=== PATIENT | male | born 1955 | race Caucasian/White ===

== ENCOUNTER 2016-09-29 17:18 | Inpatient (IN) | payer MEDICARE, OTHER ==
[2016-09-29 17:05] VITALS: BP 137/92
--- NOTE | 2016-09-29 20:15 | PDOC ---
Exam Derrell Demential Exam: Derrell Note: Please also refer to the separate dictated note~for this date of service dictated separately.~Patient seen individually. Discussed the patient with Nursing staff reviewed the chart.~Reviewed interim history and current functioning. Reviewed vital signs,~Labs/ Radiology~and current medications noted below. Continue current treatment with the changes noted in the dictated addendum note Assessment: Vital Signs: Vital Signs Date Time Temp Pulse Resp B/P (MAP) Pulse Ox O2 Delivery O2 Flow Rate FiO2 09/29/16 17:05 98.3 83 18 137/92 (107) 95 Room Air JUDAH ALEGRIA MD Sep 29, 2016 20:14
[2016-09-29] MEDS ORDERED: MAGNESIUM HYDROXIDE 2,400 MG/30 ML ORAL.SUSP. PO PRN (20:30)
[2016-09-29] MEDS ORDERED: MAG HYDROX/AL HYDROX/SIMETH 30 ML ORAL.SUSP PO PRN (20:30)
[2016-09-29] MEDS ORDERED: METHYL SALICYLATE/MENTHOL TOPICAL OINTMENT 29GM TUBE. TP PRN (20:30)
[2016-09-29] MEDS ORDERED: ACETAMINOPHEN 325 MG TABLET PO PRN (20:30)
[2016-09-29] MEDS ORDERED: METO50TA10 PO (20:42)
[2016-09-29] MEDS ORDERED: LURA40TA PO (20:42)
[2016-09-29] MEDS ORDERED: CHLO15MO2 MM (20:42)
[2016-09-29] MEDS ORDERED: FOLI1TAB16 PO (20:42)
[2016-09-29] MEDS ORDERED: DIVA500T9 PO (20:42)
[2016-09-29] MEDS ORDERED: FURO20TA3 PO (20:42)
[2016-09-29] MEDS ORDERED: LOSA50TA6 PO (20:42)
[2016-09-29] MEDS ORDERED: POTA10TA10 PO (20:42)
[2016-09-29] MEDS ORDERED: APIX5TAB3 PO (20:42)
[2016-09-29] MEDS ORDERED: CLON0.5T3 PO (20:42)
[2016-09-29] MEDS ORDERED: POLY17PO5 PO (20:42)
[2016-09-29] MEDS ORDERED: SENN1TAB7 PO (20:42)
[2016-09-29] MEDS ORDERED: SULF57CR9 TP (23:53)
--- NOTE | 2016-09-30 09:34 | SSS ---
ADMIT DATE: 09/29/2016 This note covers elements not covered in my initial note. DENTIFYING DATA: The patient is a 61-year-old male referred to us from [facility] inpatient service where he presented from [facility] retirement on account of marked increased agitation, aggression, being irritable, having auditory hallucinations, paranoid, threatening staff at the retirement. At [facility] on the inpatient service, he was pushing, yelling, unable to follow directions, agitated, aggressive, psychotic and dangerous. He was seen by Dr. Corbett, for psychiatry consult who recommended for inpatient psychiatric stabilization and then referred to us. The patient was seen individually on evening of 09/29/2016, discussed with nursing staff. Prior to his admission to review his historical information at evening of 09/29/2016. CHIEF COMPLAINT: "Get out." The patient was agitated, labile, trying to jump out of his wheelchair. HISTORY OF PRESENT ILLNESS: The patient has a history of mental retardation/bipolar disorder. Reportedly, he lived with his parents most of his life. His father 4 years ago, mother 1 year ago and since then he has been at the above retirement. Over the past several weeks, he has been increasingly agitated and aggressive and has remained on lithium with a level therapeutic at 0.8. Risperdal was discontinued while at [facility]. He has been increasingly psychotic with marked mood lability, dangerous, out of control behaviors. No active suicidal or homicidal ideation. PAST PSYCHIATRIC HISTORY: As above. MEDICAL HISTORY: Mental retardation, atrial fibrillation, mitral valve repair, CHF, psoriasis, hypertension, hyponatremia. CODE STATUS: DNR. PRIMARY CARE PHYSICIAN: Dr. Lisandro Bird. DIET: Regular. CURRENT PSYCHOTROPICS: MRAD was reviewed. He is on lithium, Latuda, Klonopin, and Risperdal recently discontinued. FAMILY HISTORY: Noncontributory. SOCIAL HISTORY: No alcohol, drug abuse, physical, sexual or elder abuse history is noted. He is not known to be a perpetrator. MENTAL STATUS EXAMINATION: The patient was seen individually evening of 09/29/2016. He is extremely labile, loud, aggressive, psychotic and physically threatening as I attempted to visit with him. Speech is loud, yelling. Insight, judgment, recent and remote memory, attention, concentration, fund of knowledge, poor, consistent with his diagnosis. LABORATORY DATA: Reviewed. PLAN: The patient was admitted to the geropsychiatry unit at [facility] with a plan for me to see him daily individually, medical followup with Dr. Stacy/Dr. Winn. Will be continued on his admitting psychotropics. Shortly after being on a unit, he fell, hit his head. Dr. Winn recommended he be taken to the Emergency Room for possible CT head and sutures. He was therefore discharged from the unit. Once he is medically stable, if behaviors persist, we will consider readmitting him for stabilization. FINAL DIAGNOSIS: As noted above. MAN Ty ALEGRIA MD DR: JESÚS/liliane JOB#: [id number] / [id number]
== END 2016-09-29 20:27 | disposition short-term general hospital (02) | DRG 885 ==
LOC: GEROPSY 17:20
PROVIDERS: ADMIT Psychiatry & Neurology Psychiatry; ATTEND Psychiatry & Neurology Psychiatry
DX: F23 Brief psychotic disorder (principal); I11.0 Hypertensive heart disease with heart failure; I50.9 Heart failure, unspecified; F31.9 Bipolar disorder, unspecified; I48.91 Unspecified atrial fibrillation; Z66 Do not resuscitate; L40.9 Psoriasis, unspecified; F79 Unspecified intellectual disabilities; Z95.2 Presence of prosthetic heart valve

== ENCOUNTER 2016-09-29 20:47 | Inpatient (IN) | payer MEDICARE, OTHER ==
[~2016-09-29] VITALS: Ht 180.3 cm; Wt 84.5 kg
[~2016-09-29 20:47] MED LIST: APIX5TAB3 PO; CHLO15MO2 MM; CLON0.5T3 PO; DIVA500T9 PO; FOLI1TAB16 PO; FURO20TA3 PO; LOSA50TA6 PO; LURA40TA PO; METO50TA10 PO; POLY17PO5 PO; POTA10TA10 PO; SENN1TAB7 PO
--- NOTE | 2016-09-29 21:50 | RAD ---
CT scan of the head without contrast 09/29/2016 Clinical History: Fall with laceration back of head. Technique: Unenhanced, contiguous, 5 mm axial sections were obtained through the head. One or more of the following individualized dose reduction techniques were utilized for this study: 1. Automated exposure control. 2. Adjustment of the mA and/or kV according to patient size. 3. Use of iterative reconstruction technique. Findings: No previous imaging studies are available for comparison. There is generalized parenchymal atrophy. Areas of decreased attenuation are seen within the periventricular and subcortical white matter of both cerebral hemispheres consistent with areas of small vessel ischemic disease. No acute parenchymal abnormality is seen. No extra-axial fluid collection is noted. No skull fracture is seen. Impression: No acute intracranial abnormality is seen. CT scan of the cervical spine without contrast 09/29/2016 Clinical history: Neck pain post fall. Technique: Unenhanced, contiguous, 0.625 mm axial sections were obtained through the cervical spine. Axial, coronal and sagittal reconstructed images were obtained. One or more of the following individualized dose reduction techniques were utilized for this study: 1. Automated exposure control. 2. Adjustment of the mA and/or kV according to patient size. 3. Use of iterative reconstruction technique. Findings: Sagittal and coronal reconstructed images demonstrate straightening of the normal cervical lordosis. Degenerative changes consisting of disc space narrowing, vertebral endplate sclerosis and mild anterior and posterior vertebral body osteophyte formation are seen throughout the cervical disc spaces. No fracture or subluxation of the cervical vertebrae is seen. Degenerative changes are seen involving the uncovertebral and facet joints throughout the cervical disc spaces. Impression: No fracture or subluxation of the cervical vertebra is identified. Electronically signed by: Scott De La Paz MD (09/29/2016 9:47 PM) [facility]
--- NOTE | 2016-09-29 22:12 | PHYS DOC ---
Past History Past Medical History: Other Past Surgical History: Other Adult General Chief Complaint Chief Complaint: MECHANICAL FALL HPI HPI Patient is a 61-year-old resident at the [facility] who presents here today secondary to a fall. Patient stood from his wheelchair and fell backwards and hit his head on a workstation on wheels. Patient had some bleeding to the back of his head with a patient was sent down for further evaluation and possible CT scan of his head and C-spine. Patient no loss of consciousness. Patient of any pains anywhere else. Review of systems difficult to obtain secondary to the patient's dementia. Patient complains of pain to his head and area where the laceration is. Review of systems: Eyes: Denies change in visual acuity, Denies any any arm pain or leg pain. Eyes any abdominal pain. All other review systems are negative except as documented in the history of present illness portion. Physical exam: Patient was soft tissue swelling and contused bleeding tissue in his posterior occiput. Patient appears to be macerated and there does not appear to be a discrete suture line that needs to be stitched at this time. There is significant amount of contusion of the tissue that is bleeding at this time. The bleeding has been well controlled with pressure dressing. Constitutional: Well developed, well nourished, no acute distress, non-toxic appearance. HENT: Normocephalic,bilateral external ears normal, , nose normal. Eyes: PERRLA, EOMI, conjunctiva normal, no discharge. Neck: Normal range of motion, mild tenderness to palpation to his left lateral neck. Cardiovascular:Heart rate regular Lungs & Thorax: Bilateral breath sounds clear to auscultation Abdomen: Bowel sounds normal, soft, no tenderness, no masses, no pulsatile masses. Skin: Warm, dry, no erythema, no rash. Back: No tenderness, no CVA tenderness. Extremities: No tenderness, no cyanosis, no clubbing, ROM intact, no edema. Patient's pelvis and shoulders were both range of motion without any grimacing or discomfort noted by the patient. Neurologic: Alert and awake. Psychologic: Affect baseline for patient Assessment and plan This is 61-year-old gentleman who presented to the ER today secondary to head trauma. Patient fell backwards and hit his head up against a work station wheels. Patient had no LOC. Patient's CT scan of his head and C-spine are benign unremarkable. Patient does have contused bleeding tissue in the back of his occiput without any clear area for suturing. I believe patient would best be treated with a pressure dressing and allow to heal by secondary intent. Patient's tetanus is up-to-date. Patient will be be discharged back to [facility]. Review of Systems Review of Systems Constitutional: Denies fever or chills [] Eyes: Denies change in visual acuity, redness, or eye pain [] HENT: Denies nasal congestion or sore throat [] Respiratory: Denies cough or shortness of breath [] Cardiovascular: No additional information not addressed in HPI [] GI: Denies abdominal pain, nausea, vomiting, bloody stools or diarrhea [] : Denies dysuria or hematuria [] Musculoskeletal: Denies back pain or joint pain [] Integument: Denies rash or skin lesions [] Neurologic: Denies headache, focal weakness or sensory changes [] Endocrine: Denies polyuria or polydipsia [] Physical Exam Physical Exam Constitutional: Well developed, well nourished, no acute distress, non-toxic appearance. [] HENT: Normocephalic, atraumatic, bilateral external ears normal, oropharynx moist, no oral exudates, nose normal. [] Eyes: PERRLA, EOMI, conjunctiva normal, no discharge. [] Neck: Normal range of motion, no tenderness, supple, no stridor. [] Cardiovascular:Heart rate regular rhythm, no murmur [] Lungs & Thorax: Bilateral breath sounds clear to auscultation [] Abdomen: Bowel sounds normal, soft, no tenderness, no masses, no pulsatile masses. [] Skin: Warm, dry, no erythema, no rash. [] Back: No tenderness, no CVA tenderness. [] Extremities: No tenderness, no cyanosis, no clubbing, ROM intact, no edema. [] Neurologic: Alert and oriented X 3, normal motor function, normal sensory function, no focal deficits noted. [] Psychologic: Affect normal, judgement normal, mood normal. [] Current Patient Data Vital Signs Vital Signs Date Time Temp Pulse Resp B/P (MAP) Pulse Ox O2 Delivery O2 Flow Rate FiO2 09/29/16 20:47 98.8 75 18 99 Room Air EKG EKG [] Radiology/Procedures Radiology/Procedures [] Course & Med Decision Making Course & Med Decision Making Pertinent Labs and Imaging studies reviewed. (See chart for details) [] Dragon Disclaimer Dragon Disclaimer This chart was dictated in whole or in part using Voice Recognition software in a busy, high-work load, and often noisy Emergency Department environment. It may contain unintended and wholly unrecognized errors or omissions. Departure Departure: Impression: Primary Impression: Head trauma Additional Impression: Scalp laceration Disposition: ADMITTED INPATIENT Condition: IMPROVED Referrals: HELLEN HERNANDEZ (PCP) Patient Instructions: Head Injury, Adult, Laceration Care, Adult Additional Instructions: Your laceration is not amenable to suturing. We are going to allow your laceration to heal by secondary intent. Please keep the wound clean and dry and covered for the next 7 days. Problem Qualifiers CURT TSE MD Sep 29, 2016 22:12
[2016-09-29] MEDS ORDERED: MAG HYDROX/AL HYDROX/SIMETH 30 ML ORAL.SUSP PO PRN (23:45)
[2016-09-29] MEDS ORDERED: ACETAMINOPHEN 325 MG TABLET PO PRN (23:45)
[2016-09-29] MEDS ORDERED: METHYL SALICYLATE/MENTHOL TOPICAL OINTMENT 29GM TUBE. TP PRN (23:45)
[2016-09-29] MEDS ORDERED: MAGNESIUM HYDROXIDE 2,400 MG/30 ML ORAL.SUSP. PO PRN (23:45)
[2016-09-29] MEDS ORDERED: SULF57CR9 TP (23:53)
[2016-09-30] MEDS ORDERED: POLYETHYLENE GLYCOL 3350 17 GM PACKET. PO PRN
[2016-09-30] MEDS ORDERED: SULFACETAMIDE SODIUM TP PRN
[2016-09-30] MEDS ORDERED: SULFUR TP PRN
[2016-09-30 02:13] VITALS: BP 121/63
[2016-09-30 02:17] VITALS: BP 111/70
[2016-09-30 05:24] VITALS: BP 100/58
[2016-09-30 08:18] LABS: VAL ACID 58 mcg/mL (50-100)
[2016-09-30 08:30] VITALS: BP 124/85
[2016-09-30] MEDS: APIXABAN 5 MG TABLET. PO SCH ×2 (09:00→20:16)
[2016-09-30] MEDS ORDERED: LURASIDONE 40 MG TABLET. PO SCH (09:00)
[2016-09-30] MEDS: clonazePAM 0.5 MG TABLET PO SCH ×2 (10:11→20:13)
[2016-09-30] MEDS: LOSARTAN 50 MG TABLET. PO SCH (10:11)
[2016-09-30] MEDS: POTASSIUM CHLORIDE 10 MEQ TABLET.ER. PO SCH (10:12)
[2016-09-30] MEDS: DIVALPROEX SODIUM 250 MG TABLET.DR. PO SCH ×2 (10:12→20:14)
[2016-09-30] MEDS: METOPROLOL SUCC 24HR ER 50 MG TAB.ER.24H. PO SCH ×2 (10:12→20:14)
[2016-09-30] MEDS: CHLORHEXIDINE 0.12% 15 ML MOUTHWASH. MM SCH (10:13)
[2016-09-30 10:43] VITALS: BP 127/79
[2016-09-30 16:19] VITALS: BP 117/70
--- NOTE | 2016-09-30 16:20 | HP ---
ADMIT DATE: 09/30/2016 PSYCHIATRIC ADMISSION HISTORY/EVALUATION DATE OF READMISSION: 09/29/2016 PRIMARY CARE PHYSICIAN: Dr. Lisandro Bird M.D. IDENTIFYING DATA: The patient is a 61-year-old white male who was initially referred to us earlier in the day on 09/29/2016 from [facility] where he presented from the [facility] on account of altered mental status, aggressive behavior, auditory hallucinations, being paranoid, threatening to staff, irritable. He was stabilized medically, seen for consult at [facility] by Dr. Corbett recommended for inpatient psychiatric hospitalization. He was admitted with us earlier on 09/29/2016; was extremely agitated, loud, disruptive. Had a fall on the unit, sustaining a scalp laceration, was transferred to the Emergency Room and discharged from my unit. He was medically stabilized in the ER, returned back to the unit around midnight of 09/29/2016. CHIEF COMPLAINT: "No." HISTORY OF PRESENT ILLNESS: Details will not be repeated here, readers referred to my initial assessment at the time of the initial admission for details. Briefly, the patient has a long history of bipolar disorder and mental retardation. He had been living at home with his parents. His father 4 years ago, mother 1 year ago and then he was transferred to the [facility] where he has lived for about a year. More recently at the [facility] he is being extremely loud, aggressive, disruptive, psychotic. Risperdal was discontinued. Bozeman level was therapeutic at 0.8. Behaviors worsened over the past several days, prompting the transfer to [facility] and then to , thereafter to the ER as noted and back to us. PAST PSYCHIATRIC HISTORY: As above. PAST MEDICAL HISTORY: Atrial fibrillation status post head injury, scalp laceration, mitral valve repair, CHF, psoriasis, hypertension, history of hyponatremia. DIET: Regular. CURRENT PSYCHOTROPICS: Bozeman, Latuda, Klonopin. Risperdal was recently discontinued. FAMILY HISTORY: Noncontributory. SOCIAL HISTORY: No alcohol, drug abuse, physical, sexual or elder abuse history noted. Not known to be a perpetrator. MENTAL STATUS EXAMINATION: The patient is oriented to himself. Overall, functioning consistent with his moderate MR. He remains quite labile, anxious, restless. Insight, judgment, recent and remote memory, attention, concentration, fund of knowledge poor, consistent with his diagnosis. LABORATORY DATA: Reviewed. IMPRESSION: Bipolar 1 disorder, mixed with psychotic features; anxiety disorder, unspecified; moderate mental retardation; impulse control disorder, unspecified; status post head injury, scalp laceration. Rest diagnosis is unchanged from above. PLAN: The patient has been readmitted to inpatient psychiatry service. Continue current psychotropics. Check labs, valproic acid level, and lithium level. Observe the patient's baseline, then adjust psychotropics as clinically indicated. I will see the patient daily individually from a psychiatric standpoint. Medical followup will be requested with Dr. Stacy/Dr. Winn. MAN Ty ALEGRIA MD DR: JESÚS/liliane JOB#: [id number] / [id number]
--- NOTE | 2016-09-30 19:49 | PDOC ---
Exam Derrell Demential Exam: Derrell Note: Please also refer to the separate dictated note~for this date of service dictated separately.~Patient seen individually. Discussed the patient with Nursing staff reviewed the chart.~Reviewed interim history and current functioning. Reviewed vital signs,~Labs/ Radiology~and current medications noted below. Continue current treatment with the changes noted in the dictated addendum note Assessment: Vital Signs: Vital Signs Date Time Temp Pulse Resp B/P (MAP) Pulse Ox O2 Delivery O2 Flow Rate FiO2 09/30/16 16:19 99.0 80 16 117/70 (86) 98 09/30/16 05:24 Room Air I&O Intake and Output 09/30/16 07:00 Intake Total 180 ml Balance 180 ml Intake Oral 180 ml Labs: Laboratory Tests Test 09/30/16 07:33 Iron Level 62 ug/dL (65-175) L Total Iron Binding Capacity 331 ug/dL (250-450) Iron Saturation 19 % (15-34) Vitamin B12 Level 402 pg/mL (247-911) Valproic Acid Level 58 mcg/mL (50-100) Valproic Acid Last Dose Date 09/28/2016 Valproic Acid Last Dose Time 2100 Current Medications: Meds: Current Medications Acetaminophen (Tylenol) 650 mg PRN Q6HRS PRN PO PAIN / TEMP; Start 09/29/16 at 23:45 Multi-Ingredient Ointment (Analgesic Terril) 1 charles PRN QID PRN TP MUSCLE PAIN; Start 09/29/16 at 23:45 Al Hydroxide/Mg Hydroxide (Mylanta Plus Xs) 15 ml PRN AFTMEALHC PRN PO DYSPEPSIA; Start 09/29/16 at 23:45 Magnesium Hydroxide (Milk Of Magnesia) 2,400 mg PRN QHS PRN PO CONSTIPATION; Start 09/29/16 at 23:45 Apixaban (Eliquis) 5 mg BID PO ; Start 09/30/16 at 09:00 Clonazepam (KlonoPIN) 0.5 mg BID PO Last administered on 09/30/16 10:11; Start 09/30/16 at 09:00 Divalproex Sodium (Depakote) 500 mg BID PO Last administered on 09/30/16 10:12 ; Start 09/30/16 at 09:00 Chlorhexidine Gluconate (Peridex) 15 ml DAILY MM Last administered on 10:13; Start 09/30/16 at 09:00 Folic Acid (Folic Acid) 1 mg HS PO ; Start 09/30/16 at 21:00 Furosemide (Lasix) 20 mg HS PO ; Start 09/30/16 at 21:00 Losartan Potassium (Cozaar) 50 mg DAILY PO Last administered on 09/30/16 10:11 ; Start 09/30/16 at 09:00 Metoprolol Succinate (Toprol Xl) 50 mg BID PO Last administered on 09/30/16 10 :12; Start 09/30/16 at 09:00 Polyethylene Glycol (miraLAX) 17 gm PRN DAILY PRN PO CONSTIPATION; Start at 00:00 Senna/Docusate Sodium (Senna Plus) 1 tab HS PO ; Start 09/30/16 at 21:00 Potassium Chloride (Klor-Con) 10 meq DAILY PO Last administered on 09/30/16 10 :12; Start 09/30/16 at 09:00 Non-Formulary Medication 1 charles PRN DAILY PRN TP RASH; Start 09/30/16 at 00:00; Status UNV Active Scripts Active Reported Sulfacetamide-Sulfur 10-5% Crm (Sulfacetamide Sodium/Sulfur) 57 Gm Cream..g. 1 Charles TP PRN DAILY PRN Potassium Chloride 10 Meq Tablet.er 10 Meq PO DAILY Miralax (Polyethylene Glycol 3350) 17 Gm Powd.pack 17 Gm PO PRN DAILY PRN Metoprolol Succinate ( Xl ) (Metoprolol Succinate) 50 Mg Tab.er.24h 50 Mg PO BID Losartan Potassium 50 Mg Tablet 50 Mg PO DAILY Furosemide 20 Mg Tablet 20 Mg PO HS Folic Acid 1 Mg Tablet 1 Mg PO HS Senna-Docusate Sodium Tablet (Sennosides/Docusate Sodium) 1 Each Tablet 1 Each PO HS Peridex (Chlorhexidine Gluconate) 15 Ml Mouthwash 15 Ml MM DAILY Eliquis (Apixaban) 5 Mg Tablet 5 Mg PO BID Latuda (Lurasidone Hcl) 40 Mg Tablet 60 Mg PO DAILY Divalproex Sodium 500 Mg Tablet.dr 1 Tab PO BID Clonazepam 0.5 Mg Tablet 0.5 Mg PO BID Diagnosis: Problems: (1) Bipolar affective, mixed, sev w/ psych (2) Anxiety disorder (3) Dementia, vascular, with delusions (4) Dementia in Alzheimer's disease with delusions (5) Impulse control disorder JUDAH ALEGRIA MD Sep 30, 2016 19:49
[2016-09-30] MEDS: SENNOSIDES/DOCUSATE 8.6/50MG TABLET. PO SCH (20:15)
[2016-09-30] MEDS: FUROSEMIDE 20 MG TABLET PO SCH (20:15)
[2016-09-30] MEDS: FOLIC ACID 1 MG TABLET PO SCH (20:15)
[2016-10-01 06:22] VITALS: BP 121/78
[2016-10-01 07:56] LABS: BASO % 0 % (0-3); EOS # 0.2 x10^3/uL (0.0-0.7); EOS % 3 % (0-3); HEMATOCRIT 33.4 % (39.0-53.0); HEMOGLOBIN 10.9 g/dL (13.0-17.5); LYMPH # 0.8 x10^3/uL (1.0-4.8); LYMPH % 13 % (24-48); MEAN CORPUSCULAR HEMOGLOBIN 30 pg (25-35); MEAN CORPUSCULAR HGB CONC 33 g/dL (31-37); MEAN CORPUSCULAR VOLUME 91 fL (79-100); MONO # 0.5 x10^3/uL (0.0-1.1); MONO % 8 % (0-9); NEUT # 4.5 x10^3uL (1.8-7.7); NEUT % 75 % (31-73); PLATELET COUNT 158 x10^3/uL (140-400); RED BLOOD COUNT 3.65 x10^6/uL (4.30-5.70); RED CELL DISTRIBUTION WIDTH 15.4 % (11.5-14.5)
[2016-10-01 08:09] LABS: ALBUMIN 3.3 g/dL (3.4-5.0); GFR 75.7; POTASSIUM 4.1 mmol/L (3.5-5.1); TOTAL BILIRUBIN 0.4 mg/dL (0.2-1.0); TOTAL PROTEIN 6.7 g/dL (6.4-8.2)
[2016-10-01] MEDS: CHLORHEXIDINE 0.12% 15 ML MOUTHWASH. MM SCH (08:10)
[2016-10-01] MEDS: METOPROLOL SUCC 24HR ER 50 MG TAB.ER.24H. PO SCH ×2 (08:10→20:15)
[2016-10-01] MEDS: LOSARTAN 50 MG TABLET. PO SCH (08:11)
[2016-10-01] MEDS: APIXABAN 5 MG TABLET. PO SCH ×2 (08:11→20:15)
[2016-10-01] MEDS: POTASSIUM CHLORIDE 10 MEQ TABLET.ER. PO SCH (08:11)
[2016-10-01] MEDS: DIVALPROEX SODIUM 250 MG TABLET.DR. PO SCH ×2 (08:12→20:14)
[2016-10-01] MEDS: LURASIDONE 40 MG TABLET. PO SCH (08:14)
[2016-10-01] MEDS: clonazePAM 0.5 MG TABLET PO SCH ×2 (08:14→20:15)
--- NOTE | 2016-10-01 14:23 | CONS ---
DATE OF CONSULTATION: 09/30/2016 CONSULT FOR MEDICAL MANAGEMENT. HISTORY OF PRESENT ILLNESS: The patient is a 61-year-old male patient with a long history of psychiatric illness, bipolar disorder and also mental retardation, was seen in the Emergency Room of [facility] because apparently he went into psychotic state, threatening all the staff at the boarding home where he has been staying and apparently have tried to take him to [place] but they would not accept him on this as a referral. He was seen in the Emergency Room of [facility] where he was evaluated as he has been exhibiting aggressive, irritable behavior, somewhat still having auditory hallucinations, responding to the internal stimuli, also paranoid and also refusing all the family members who have been with him, not wanting to be touched by them. The patient apparently had some problems with his heart lately and he was sent to [facility] where he stayed for 2 weeks. At that time, they took him off his Risperdal and also his fluvoxamine. He continues to be on lithium carbonate. Higgins level was 0.8 on admission and by the time, he was seen in the Emergency Room, he was continued to be confused with involuntarily movement of his extremities, restless, continued to responding to internal stimuli, apparently is hallucinating at this time and from there he was [facility]. On questioning him, he denied any complaint. PAST MEDICAL HISTORY: Significant for atrial fibrillation, hyponatremia, history of metabolic encephalopathy. PAST PSYCHIATRIC HISTORY: Significant for bipolar disorder, obsessive compulsive disorder, impulse control disorder, has also moderate mental retardation. PAST MEDICAL HISTORY: Significant for mitral valve repair, congestive heart failure with an ejection fraction of 45%, psoriasis. ALLERGIES: He has no known drug allergies. MEDICATIONS: He is currently on following medications: He is currently on apixaban 5 mg p.o. b.i.d., chlorhexidine gluconate 15 mL swish and spit twice a day, clonazepam 0.5 mg twice a day, divalproex 500 mg twice a day, folic acid 1 mg at bedtime, furosemide 20 mg at bedtime, losartan potassium 50 mg once a day, Latuda 60 mg once a day, metoprolol succinate 50 mg once a day, polyethylene glycol 17 grams once a day, potassium chloride 10 mEq once a day, Senna-S 1 tablet once a day, sulfacetamide and sulfur cream applied topically as needed. REVIEW OF SYSTEMS: As per history of present illness. PHYSICAL EXAMINATION GENERAL: When I examined him, he was lying flat in the floor, sleeping comfortably, in no apparent distress. He was pale, but no jaundice, cyanosis or thyromegaly. No jugular venous distention. No lower limb edema. VITAL SIGNS: His heart rate was 80, blood pressure was 117/70, temperature was 99, respiratory rate was 16, and oxygen saturation was 98% on room air. HEAD, EYES, EARS, NOSE and THROAT: Showed normocephalic, atraumatic. NECK: Supple. HEART: Showed normal first and second heart sounds with no gallop, rub or murmur. CHEST: Clear to auscultation. No crepitation or rhonchi. ABDOMEN: Slightly distended, soft, nontender. NEUROLOGIC: He was awake, alert, respond at times appropriately. All his cranial nerves are intact. EXTREMITIES: He moves extremities without difficulty. SKIN: Showed that he has marked seborrheic dermatitis affecting the scalp and the face. He has also wounds on his both legs, although he carries a diagnosis of psoriasis, I could not see any evidence of psoriasis on his elbows, knees or margins. LAB WORK: Showed a white cell count of 5100, hemoglobin 8.4, hematocrit 30, MCV 96, and platelet count of 142,000. His serum sodium 142, potassium 4.1, chloride 108, bicarbonate 29, BUN 14, creatinine 1.1. His glucose was 93. Calcium was 9.2, magnesium 2.2. His AST, ALT, alkaline phosphatase were normal. Albumin was 4. His prothrombin time was 18.3, aPTT was 38, and INR 1.5. His CT scan of the head was unremarkable. ASSESSMENT AND PLAN: So in summary, this is a 61-year-old male patient with longstanding history of psychiatric illness in the form of bipolar disorder as well as mental retardation, who was [facility] with altered mental status, being aggressive, irritable. He has also auditory hallucination, has been threatening the staff and questioning, yelling, difficult to redirect and he is here for psychiatric stabilization. Medically he is known to have hypertension and hyponatremia, congestive heart failure, mitral valve repair, atrial fibrillation and psoriasis versus seborrheic dermatitis. Medically all in all, he seemed to be stable and all his vital signs are stable. His lab works are all within acceptable range. I will repeat his labs tomorrow to make sure that his sodium is within acceptable range. I will follow all his other lab work that are still pending at the time of this dictation. Thank you, Dr. Andrade for allowing me to participate in the care of this patient. JOSR CARDENAS MD DR: RUDY/liliane JOB#: [id number] / [id number]
[2016-10-01 16:27] VITALS: BP 116/66
--- NOTE | 2016-10-01 19:46 | PDOC ---
Exam Derrell Demential Exam: Derrell Note: Please also refer to the separate dictated note~for this date of service dictated separately.~Patient seen individually. Discussed the patient with Nursing staff reviewed the chart.~Reviewed interim history and current functioning. Reviewed vital signs,~Labs/ Radiology~and current medications noted below. Continue current treatment with the changes noted in the dictated addendum note Assessment: Vital Signs: Vital Signs Date Time Temp Pulse Resp B/P (MAP) Pulse Ox O2 Delivery O2 Flow Rate FiO2 10/01/16 16:27 97.9 76 20 116/66 (83) 96 09/30/16 05:24 Room Air I&O Intake and Output 10/01/16 07:00 Intake Total 1320 ml Balance 1320 ml Intake Oral 1320 ml Labs: Laboratory Tests Test 10/01/16 07:39 White Blood Count 6.0 x10^3/uL (4.0-11.0) Red Blood Count 3.65 x10^6/uL (4.30-5.70) L Hemoglobin 10.9 g/dL (13.0-17.5) L Hematocrit 33.4 % (39.0-53.0) L Mean Corpuscular Volume 91 fL (79-100) Mean Corpuscular Hemoglobin 30 pg (25-35) Mean Corpuscular Hemoglobin Concent 33 g/dL (31-37) Red Cell Distribution Width 15.4 % (11.5-14.5) H Platelet Count 158 x10^3/uL (140-400) Neutrophils (%) (Auto) 75 % (31-73) H Lymphocytes (%) (Auto) 13 % (24-48) L Monocytes (%) (Auto) 8 % (0-9) Eosinophils (%) (Auto) 3 % (0-3) Basophils (%) (Auto) 0 % (0-3) Neutrophils # (Auto) 4.5 x10^3uL (1.8-7.7) Lymphocytes # (Auto) 0.8 x10^3/uL (1.0-4.8) L Monocytes # (Auto) 0.5 x10^3/uL (0.0-1.1) Eosinophils # (Auto) 0.2 x10^3/uL (0.0-0.7) Basophils # (Auto) 0.0 x10^3/uL (0.0-0.2) Prothrombin Time 11.3 SEC (9.4-11.4) Prothrombin Time INR 1.1 (0.9-1.1) Sodium Level 146 mmol/L (136-145) H Potassium Level 4.1 mmol/L (3.5-5.1) Chloride Level 108 mmol/L (98-107) H Carbon Dioxide Level 33 mmol/L (21-32) H Anion Gap 5 (6-14) L Blood Urea Nitrogen 12 mg/dL (8-26) Creatinine 1.0 mg/dL (0.7-1.3) Estimated GFR (Cockcroft-Gault) 75.7 BUN/Creatinine Ratio 12 (6-20) Glucose Level 98 mg/dL (70-99) Calcium Level 9.0 mg/dL (8.5-10.1) Total Bilirubin 0.4 mg/dL (0.2-1.0) Aspartate Amino Transferase (AST) 21 U/L (15-37) Alanine Aminotransferase (ALT) 18 U/L (16-63) Alkaline Phosphatase 61 U/L (46-116) Total Protein 6.7 g/dL (6.4-8.2) Albumin 3.3 g/dL (3.4-5.0) L Albumin/Globulin Ratio 1.0 (1.0-1.7) Current Medications: Meds: Current Medications Acetaminophen (Tylenol) 650 mg PRN Q6HRS PRN PO PAIN / TEMP; Start 09/29/16 at 23:45 Multi-Ingredient Ointment (Analgesic [place]) 1 charlse PRN QID PRN TP MUSCLE PAIN; Start 09/29/16 at 23:45 Al Hydroxide/Mg Hydroxide (Mylanta Plus Xs) 15 ml PRN AFTMEALHC PRN PO DYSPEPSIA; Start 09/29/16 at 23:45 Magnesium Hydroxide (Milk Of Magnesia) 2,400 mg PRN QHS PRN PO CONSTIPATION; Start 09/29/16 at 23:45 Apixaban (Eliquis) 5 mg BID PO Last administered on 10/01/16 08:11; Start at 09:00 Clonazepam (KlonoPIN) 0.5 mg BID PO Last administered on 10/01/16 08:14; Start 09/30/16 at 09:00 Divalproex Sodium (Depakote) 500 mg BID PO Last administered on 10/01/16 08:12 ; Start 09/30/16 at 09:00 Chlorhexidine Gluconate (Peridex) 15 ml DAILY MM Last administered on 08:10; Start 09/30/16 at 09:00 Folic Acid (Folic Acid) 1 mg HS PO Last administered on 09/30/16 20:15; Start 09/30/16 at 21:00 Furosemide (Lasix) 20 mg HS PO Last administered on 09/30/16 20:15; Start at 21:00 Losartan Potassium (Cozaar) 50 mg DAILY PO Last administered on 10/01/16 08:11 ; Start 09/30/16 at 09:00 Metoprolol Succinate (Toprol Xl) 50 mg BID PO Last administered on 10/01/16 08 :10; Start 09/30/16 at 09:00 Polyethylene Glycol (miraLAX) 17 gm PRN DAILY PRN PO CONSTIPATION; Start at 00:00 Senna/Docusate Sodium (Senna Plus) 1 tab HS PO Last administered on 09/30/16 20:15; Start 09/30/16 at 21:00 Potassium Chloride (Klor-Con) 10 meq DAILY PO Last administered on 10/01/16 08 :11; Start 09/30/16 at 09:00 Non-Formulary Medication 1 charles PRN DAILY PRN TP RASH; Start 09/30/16 at 00:00; Status UNV Buspirone HCl (Buspar) 5 mg TID PO ; Start 10/01/16 at 21:00 Active Scripts Active Reported Sulfacetamide-Sulfur 10-5% Crm (Sulfacetamide Sodium/Sulfur) 57 Gm Cream..g. 1 Charles TP PRN DAILY PRN Potassium Chloride 10 Meq Tablet.er 10 Meq PO DAILY Miralax (Polyethylene Glycol 3350) 17 Gm Powd.pack 17 Gm PO PRN DAILY PRN Metoprolol Succinate ( Xl ) (Metoprolol Succinate) 50 Mg Tab.er.24h 50 Mg PO BID Losartan Potassium 50 Mg Tablet 50 Mg PO DAILY Furosemide 20 Mg Tablet 20 Mg PO HS Folic Acid 1 Mg Tablet 1 Mg PO HS Senna-Docusate Sodium Tablet (Sennosides/Docusate Sodium) 1 Each Tablet 1 Each PO HS Peridex (Chlorhexidine Gluconate) 15 Ml Mouthwash 15 Ml MM DAILY Eliquis (Apixaban) 5 Mg Tablet 5 Mg PO BID Latuda (Lurasidone Hcl) 40 Mg Tablet 60 Mg PO DAILY Divalproex Sodium 500 Mg Tablet.dr 1 Tab PO BID Clonazepam 0.5 Mg Tablet 0.5 Mg PO BID Diagnosis: Problems: (1) Bipolar affective, mixed, sev w/ psych (2) Anxiety disorder (3) Dementia, vascular, with delusions (4) Dementia in Alzheimer's disease with delusions (5) Impulse control disorder JUDAH ALEGRIA MD Oct 01, 2016 19:46
[2016-10-01] MEDS: SENNOSIDES/DOCUSATE 8.6/50MG TABLET. PO SCH (20:15)
[2016-10-01] MEDS: FUROSEMIDE 20 MG TABLET PO SCH (20:15)
[2016-10-01] MEDS: FOLIC ACID 1 MG TABLET PO SCH (20:15)
[2016-10-01] MEDS: busPIRone 5 MG TABLET. PO SCH (20:16)
[2016-10-02 05:47] VITALS: BP 140/57
[2016-10-02] MEDS: POTASSIUM CHLORIDE 10 MEQ TABLET.ER. PO SCH (07:52)
[2016-10-02] MEDS: CHLORHEXIDINE 0.12% 15 ML MOUTHWASH. MM SCH (07:52)
[2016-10-02] MEDS: APIXABAN 5 MG TABLET. PO SCH ×2 (07:52→19:38)
[2016-10-02] MEDS: DIVALPROEX SODIUM 250 MG TABLET.DR. PO SCH ×2 (07:52→19:38)
[2016-10-02] MEDS: METOPROLOL SUCC 24HR ER 50 MG TAB.ER.24H. PO SCH ×2 (07:53→19:38)
[2016-10-02] MEDS: busPIRone 5 MG TABLET. PO SCH ×3 (07:53→19:38)
[2016-10-02] MEDS: LOSARTAN 50 MG TABLET. PO SCH (07:53)
[2016-10-02] MEDS: clonazePAM 0.5 MG TABLET PO SCH ×2 (07:55→19:37)
[2016-10-02] MEDS: LURASIDONE 40 MG TABLET. PO SCH (07:55)
[2016-10-02 15:59] VITALS: BP 128/83
[2016-10-02] MEDS ORDERED: APP TOP PRN (17:30)
[2016-10-02] MEDS ORDERED: [UNRECOGNIZED DRUG - OTHER] TOP PRN (17:30)
[2016-10-02] MEDS ORDERED: [UNRECOGNIZED DRUG - OTHER] TOP (17:41)
[2016-10-02] MEDS ORDERED: [UNRECOGNIZED DRUG - OTHER] TOP (17:41)
[2016-10-02] MEDS: SENNOSIDES/DOCUSATE 8.6/50MG TABLET. PO SCH (19:37)
[2016-10-02] MEDS: FOLIC ACID 1 MG TABLET PO SCH (19:37)
[2016-10-02] MEDS: FUROSEMIDE 20 MG TABLET PO SCH (19:38)
--- NOTE | 2016-10-02 19:44 | PDOC ---
Exam Derrell Demential Exam: Derrell Note: Please also refer to the separate dictated note~for this date of service dictated separately.~Patient seen individually. Discussed the patient with Nursing staff reviewed the chart.~Reviewed interim history and current functioning. Reviewed vital signs,~Labs/ Radiology~and current medications noted below. Continue current treatment with the changes noted in the dictated addendum note Assessment: Vital Signs: Vital Signs Date Time Temp Pulse Resp B/P (MAP) Pulse Ox O2 Delivery O2 Flow Rate FiO2 10/02/16 19:38 68 128/83 10/02/16 15:59 97.6 18 92 09/30/16 05:24 Room Air I&O Intake and Output 10/02/16 07:00 Intake Total 840 ml Balance 840 ml Intake Oral 840 ml # Voids 1 # Bowel Movements 1 Current Medications: Meds: Current Medications Acetaminophen (Tylenol) 650 mg PRN Q6HRS PRN PO PAIN / TEMP; Start 09/29/16 at 23:45 Multi-Ingredient Ointment (Analgesic [place]) 1 charles PRN QID PRN TP MUSCLE PAIN; Start 09/29/16 at 23:45 Al Hydroxide/Mg Hydroxide (Mylanta Plus Xs) 15 ml PRN AFTMEALHC PRN PO DYSPEPSIA; Start 09/29/16 at 23:45 Magnesium Hydroxide (Milk Of Magnesia) 2,400 mg PRN QHS PRN PO CONSTIPATION; Start 09/29/16 at 23:45 Apixaban (Eliquis) 5 mg BID PO Last administered on 10/02/16 19:38; Start at 09:00 Clonazepam (KlonoPIN) 0.5 mg BID PO Last administered on 10/02/16 19:37; Start 09/30/16 at 09:00 Divalproex Sodium (Depakote) 500 mg BID PO Last administered on 10/02/16 19:38 ; Start 09/30/16 at 09:00 Chlorhexidine Gluconate (Peridex) 15 ml DAILY MM Last administered on 07:52; Start 09/30/16 at 09:00 Folic Acid (Folic Acid) 1 mg HS PO Last administered on 10/02/16 19:37; Start 09/30/16 at 21:00 Furosemide (Lasix) 20 mg HS PO Last administered on 10/02/16 19:38; Start at 21:00 Losartan Potassium (Cozaar) 50 mg DAILY PO Last administered on 10/02/16 07:53 ; Start 09/30/16 at 09:00 Metoprolol Succinate (Toprol Xl) 50 mg BID PO Last administered on 10/02/16 19 :38; Start 09/30/16 at 09:00 Polyethylene Glycol (miraLAX) 17 gm PRN DAILY PRN PO CONSTIPATION; Start at 00:00 Senna/Docusate Sodium (Senna Plus) 1 tab HS PO Last administered on 10/02/16 19:37; Start 09/30/16 at 21:00 Potassium Chloride (Klor-Con) 10 meq DAILY PO Last administered on 10/02/16 07 :52; Start 09/30/16 at 09:00 Non-Formulary Medication 1 charles PRN DAILY PRN TP RASH; Start 09/30/16 at 00:00; Status UNV Buspirone HCl (Buspar) 5 mg TID PO Last administered on 10/02/16 19:38; Start 10/01/16 at 21:00 Non-Formulary Medication 1 applic PRN DAILY PRN TOP dry face; Start 10/02/16 at 17:30 Non-Formulary Medication 1 charles PRN DAILY PRN TOP dry scalp; Start 10/02/16 at 17:30 Active Scripts Active Reported [sulfatamide lotion] 1 Applic TOP PRN DAILY PRN [triamcinolone shampo] 0.1% Charles 1 Charles TOP PRN DAILY PRN Sulfacetamide-Sulfur 10-5% Crm (Sulfacetamide Sodium/Sulfur) 57 Gm Cream..g. 1 Charles TP PRN DAILY PRN Potassium Chloride 10 Meq Tablet.er 10 Meq PO DAILY Miralax (Polyethylene Glycol 3350) 17 Gm Powd.pack 17 Gm PO PRN DAILY PRN Metoprolol Succinate ( Xl ) (Metoprolol Succinate) 50 Mg Tab.er.24h 50 Mg PO BID Losartan Potassium 50 Mg Tablet 50 Mg PO DAILY Furosemide 20 Mg Tablet 20 Mg PO HS Folic Acid 1 Mg Tablet 1 Mg PO HS Senna-Docusate Sodium Tablet (Sennosides/Docusate Sodium) 1 Each Tablet 1 Each PO HS Peridex (Chlorhexidine Gluconate) 15 Ml Mouthwash 15 Ml MM DAILY Eliquis (Apixaban) 5 Mg Tablet 5 Mg PO BID Latuda (Lurasidone Hcl) 40 Mg Tablet 60 Mg PO DAILY Divalproex Sodium 500 Mg Tablet.dr 1 Tab PO BID Clonazepam 0.5 Mg Tablet 0.5 Mg PO BID Diagnosis: Problems: (1) Bipolar affective, mixed, sev w/ psych (2) Anxiety disorder (3) Dementia, vascular, with delusions (4) Dementia in Alzheimer's disease with delusions (5) Impulse control disorder JUDAH ALEGRIA MD Oct 02, 2016 19:44
--- NOTE | 2016-10-02 23:22 | PN ---
DATE: 10/01/2016 PSYCHIATRIC PROGRESS NOTE This late entry 10/01/2016 covers elements not covered in my initial note. SUBJECTIVE: I met with the patient evening of 10/01/2016. Reportedly, the patient is resistive to medications and it has to be mixed in his food for compliance. His sister reportedly stated that he takes his medications whole. At night, he was agitated, refused to stay in the wheelchair, labile at times. REVIEW OF SYSTEMS: Ambulation impaired. No CV, , pulmonary, eye, ENT system symptoms on review. Reliability poor. MENTAL STATUS EXAM: Oriented to himself. Insight, judgment, recent and remote memory, attention, concentration, fund of knowledge poor, consistent with his diagnosis mentioned in my initial note. PLAN: Continue psychotropics mentioned in my initial note. Start BuSpar 5 mg 3 times a day for anxiety, agitation. Reviewed drug interactions risk/benefit ratio favors no further change as of now. MAN Ty ALEGRIA MD DR: JESÚS/liliane JOB#: [id number] / [id number]
[2016-10-03 06:00] VITALS: BP 126/84
[2016-10-03] MEDS: LOSARTAN 50 MG TABLET. PO SCH (07:17)
[2016-10-03] MEDS: busPIRone 5 MG TABLET. PO SCH ×3 (07:17→20:15)
[2016-10-03] MEDS: APIXABAN 5 MG TABLET. PO SCH ×2 (07:17→20:15)
[2016-10-03] MEDS: POTASSIUM CHLORIDE 10 MEQ TABLET.ER. PO SCH (07:18)
[2016-10-03] MEDS: CHLORHEXIDINE 0.12% 15 ML MOUTHWASH. MM SCH (07:18)
[2016-10-03] MEDS: METOPROLOL SUCC 24HR ER 50 MG TAB.ER.24H. PO SCH ×2 (07:18→20:14)
[2016-10-03] MEDS: LURASIDONE 40 MG TABLET. PO SCH (07:20)
[2016-10-03] MEDS: DIVALPROEX SODIUM 250 MG TABLET.DR. PO SCH ×2 (07:20→20:15)
[2016-10-03] MEDS: clonazePAM 0.5 MG TABLET PO SCH ×2 (07:21→20:15)
[2016-10-03 16:29] VITALS: BP 140/87
--- NOTE | 2016-10-03 19:49 | PDOC ---
Exam Derrell Demential Exam: Derrell Note: Please also refer to the separate dictated note~for this date of service dictated separately.~Patient seen individually. Discussed the patient with Nursing staff reviewed the chart.~Reviewed interim history and current functioning. Reviewed vital signs,~Labs/ Radiology~and current medications noted below. Continue current treatment with the changes noted in the dictated addendum note Assessment: Vital Signs: Vital Signs Date Time Temp Pulse Resp B/P (MAP) Pulse Ox O2 Delivery O2 Flow Rate FiO2 10/03/16 16:29 97.6 73 18 140/87 (104) 99 09/30/16 05:24 Room Air I&O Intake and Output 10/03/16 07:00 Intake Total 960 ml Balance 960 ml Intake Oral 960 ml # Voids 1 Current Medications: Meds: Current Medications Acetaminophen (Tylenol) 650 mg PRN Q6HRS PRN PO PAIN / TEMP Last administered on 10/03/16 12:42; Start 09/29/16 at 23:45 Multi-Ingredient Ointment (Analgesic [place]) 1 charles PRN QID PRN TP MUSCLE PAIN; Start 09/29/16 at 23:45 Al Hydroxide/Mg Hydroxide (Mylanta Plus Xs) 15 ml PRN AFTMEALHC PRN PO DYSPEPSIA; Start 09/29/16 at 23:45 Magnesium Hydroxide (Milk Of Magnesia) 2,400 mg PRN QHS PRN PO CONSTIPATION; Start 09/29/16 at 23:45 Apixaban (Eliquis) 5 mg BID PO Last administered on 10/03/16 07:17; Start at 09:00 Clonazepam (KlonoPIN) 0.5 mg BID PO Last administered on 10/03/16 07:21; Start 09/30/16 at 09:00 Divalproex Sodium (Depakote) 500 mg BID PO Last administered on 10/03/16 07:20 ; Start 09/30/16 at 09:00 Chlorhexidine Gluconate (Peridex) 15 ml DAILY MM Last administered on 07:18; Start 09/30/16 at 09:00 Folic Acid (Folic Acid) 1 mg HS PO Last administered on 10/02/16 19:37; Start 09/30/16 at 21:00 Furosemide (Lasix) 20 mg HS PO Last administered on 10/02/16 19:38; Start at 21:00 Losartan Potassium (Cozaar) 50 mg DAILY PO Last administered on 10/03/16 07:17 ; Start 09/30/16 at 09:00 Metoprolol Succinate (Toprol Xl) 50 mg BID PO Last administered on 10/03/16 07 :18; Start 09/30/16 at 09:00 Polyethylene Glycol (miraLAX) 17 gm PRN DAILY PRN PO CONSTIPATION; Start at 00:00 Senna/Docusate Sodium (Senna Plus) 1 tab HS PO Last administered on 10/02/16 19:37; Start 09/30/16 at 21:00 Potassium Chloride (Klor-Con) 10 meq DAILY PO Last administered on 10/03/16 07 :18; Start 09/30/16 at 09:00 Non-Formulary Medication 1 charles PRN DAILY PRN TP RASH; Start 09/30/16 at 00:00; Status UNV Buspirone HCl (Buspar) 5 mg TID PO Last administered on 10/03/16 12:42; Start 10/01/16 at 21:00 Non-Formulary Medication 1 applic PRN DAILY PRN TOP dry face Last administered on 10/03/16 09:24; Start 10/02/16 at 17:30 Non-Formulary Medication 1 charles PRN DAILY PRN TOP dry scalp; Start 10/02/16 at 17:30 [place] Carbonate 300 mg HS PO ; Start 10/03/16 at 21:00 Active Scripts Active Reported [sulfatamide lotion] 1 Applic TOP PRN DAILY PRN [triamcinolone shampo] 0.1% Charles 1 Charles TOP PRN DAILY PRN Sulfacetamide-Sulfur 10-5% Crm (Sulfacetamide Sodium/Sulfur) 57 Gm Cream..g. 1 Charles TP PRN DAILY PRN Potassium Chloride 10 Meq Tablet.er 10 Meq PO DAILY Miralax (Polyethylene Glycol 3350) 17 Gm Powd.pack 17 Gm PO PRN DAILY PRN Metoprolol Succinate ( Xl ) (Metoprolol Succinate) 50 Mg Tab.er.24h 50 Mg PO BID Losartan Potassium 50 Mg Tablet 50 Mg PO DAILY Furosemide 20 Mg Tablet 20 Mg PO HS Folic Acid 1 Mg Tablet 1 Mg PO HS Senna-Docusate Sodium Tablet (Sennosides/Docusate Sodium) 1 Each Tablet 1 Each PO HS Peridex (Chlorhexidine Gluconate) 15 Ml Mouthwash 15 Ml MM DAILY Eliquis (Apixaban) 5 Mg Tablet 5 Mg PO BID Latuda (Lurasidone Hcl) 40 Mg Tablet 60 Mg PO DAILY Divalproex Sodium 500 Mg Tablet.dr 1 Tab PO BID Clonazepam 0.5 Mg Tablet 0.5 Mg PO BID Diagnosis: Problems: (1) Bipolar affective, mixed, sev w/ psych (2) Anxiety disorder (3) Dementia, vascular, with delusions (4) Dementia in Alzheimer's disease with delusions (5) Impulse control disorder JUDAH ALEGRIA MD Oct 03, 2016 19:49
[2016-10-03] MEDS: FOLIC ACID 1 MG TABLET PO SCH (20:14)
[2016-10-03] MEDS: LITHIUM CARBONATE 300 MG TABLET PO SCH (20:14)
[2016-10-03] MEDS: SENNOSIDES/DOCUSATE 8.6/50MG TABLET. PO SCH (20:15)
[2016-10-03] MEDS: FUROSEMIDE 20 MG TABLET PO SCH (20:15)
--- NOTE | 2016-10-04 01:02 | PN ---
DATE: 10/02/2016 This late entry 10/02/2016 covers the elements not covered in my initial note of 10/02/2016. SUBJECTIVE: The patient was staffed at a treatment team meeting with the entire team morning of 10/02/2016 and his sister, Ryanne, attended for the lengthy conference. We reviewed the patient's history at length, current medications, past treatment on lithium for about 30 years long and during this time the patient is very stable. Nevertheless, since then he has lost his parents and certainly this additional psychosocial stressors made his bipolar disorder/MR symptoms functionally more problematic. REVIEW OF SYSTEMS: Ambulation impaired. No CV, , pulmonary, eye, ENT system symptoms on review. MENTAL STATUS EXAM: Oriented to himself. Insight, judgment, recent and remote memory, attention, concentration, fund of knowledge poor, consistent with his diagnosis. He slept 7-1/4 hours previous evening and takes his meds crushed, quite agitated the previous evening, restless, trying to get up from his wheelchair. Also reviewed records from [facility] in his past treatment on lithium. Records received from the daughter. LABORATORY DATA: Reviewed. IMPRESSION: Bipolar 1 disorder, mixed with psychotic features, mental retardation, rest unchanged; impulse control disorder. PLAN: Continue Klonopin along with Depakote 500 mg at bedtime, level is therapeutic at 58. Latuda increased to 80 mg a day, BuSpar 5 mg 3 times a day. The patient has done well on lithium in the past for a long time and his dosage on lithium was 300 mg twice a day. We will restart lithium at 300 mg at bedtime starting on 10/03/2016. Follow labs, lithium level, adjust further as clinically indicated. MAN Ty ALEGRIA MD DR: JESÚS/liliane JOB#: [id number] / [id number]
[2016-10-04 06:01] VITALS: BP 117/70
[2016-10-04] MEDS: APIXABAN 5 MG TABLET. PO SCH ×2 (07:14→19:50)
[2016-10-04] MEDS: DIVALPROEX SODIUM 250 MG TABLET.DR. PO SCH ×2 (07:14→19:49)
[2016-10-04] MEDS: LURASIDONE 40 MG TABLET. PO SCH (07:14)
[2016-10-04] MEDS: CHLORHEXIDINE 0.12% 15 ML MOUTHWASH. MM SCH (07:14)
[2016-10-04] MEDS: POTASSIUM CHLORIDE 10 MEQ TABLET.ER. PO SCH (07:14)
[2016-10-04] MEDS: busPIRone 5 MG TABLET. PO SCH ×3 (07:14→19:50)
[2016-10-04] MEDS: METOPROLOL SUCC 24HR ER 50 MG TAB.ER.24H. PO SCH ×2 (07:15→19:49)
[2016-10-04] MEDS: LOSARTAN 50 MG TABLET. PO SCH (07:15)
[2016-10-04] MEDS: clonazePAM 0.5 MG TABLET PO SCH ×2 (07:16→19:49)
[2016-10-04 15:45] VITALS: BP 123/55
--- NOTE | 2016-10-04 17:59 | PN ---
DATE: 10/03/2016 This late entry of 10/03/2016 covers elements not covered in my initial note of 10/03/2016. SUBJECTIVE: Per nursing report, the patient has done better with cares and more compliant. No yelling noted, which is an improvement. REVIEW OF SYSTEMS: Ambulation impaired. No CV, , pulmonary, eye system symptoms on review. Reliability poor. MENTAL STATUS EXAM: Oriented to himself. Insight, judgment, recent and remote memory, attention, concentration, fund of knowledge poor, consistent with his diagnosis mentioned in my initial note. LABORATORY DATA: Reviewed. PLAN: Continue current psychotropics including lithium 300 mg at bedtime, Depakote, Klonopin, Latuda, which was increased. Adjust further as clinically indicated. Check lithium level. MAN Ty ALEGRIA MD DR: JESÚS/liliane JOB#: [id number] / [id number]
[2016-10-04] MEDS: FUROSEMIDE 20 MG TABLET PO SCH (19:49)
[2016-10-04] MEDS: SENNOSIDES/DOCUSATE 8.6/50MG TABLET. PO SCH (19:49)
[2016-10-04] MEDS: FOLIC ACID 1 MG TABLET PO SCH (19:49)
[2016-10-04] MEDS: LITHIUM CARBONATE 300 MG TABLET PO SCH (19:50)
--- NOTE | 2016-10-04 23:14 | PDOC ---
Exam Derrell Demential Exam: Derrell Note: Please also refer to the separate dictated note~for this date of service dictated separately.~Patient seen individually. Discussed the patient with Nursing staff reviewed the chart.~Reviewed interim history and current functioning. Reviewed vital signs,~Labs/ Radiology~and current medications noted below. Continue current treatment with the changes noted in the dictated addendum note Assessment: Vital Signs: Vital Signs Date Time Temp Pulse Resp B/P (MAP) Pulse Ox O2 Delivery O2 Flow Rate FiO2 10/04/16 19:49 101 123/55 10/04/16 15:45 100.1 22 95 10/04/16 06:01 Room Air I&O Intake and Output 10/04/16 07:00 Intake Total 1205 ml Balance 1205 ml Intake Oral 1205 ml # Voids 1 # Bowel Movements 1 Current Medications: Meds: Current Medications Acetaminophen (Tylenol) 650 mg PRN Q6HRS PRN PO PAIN / TEMP Last administered on 10/03/16 12:42; Start 09/29/16 at 23:45 Multi-Ingredient Ointment (Analgesic [place]) 1 charles PRN QID PRN TP MUSCLE PAIN; Start 09/29/16 at 23:45 Al Hydroxide/Mg Hydroxide (Mylanta Plus Xs) 15 ml PRN AFTMEALHC PRN PO DYSPEPSIA; Start 09/29/16 at 23:45 Magnesium Hydroxide (Milk Of Magnesia) 2,400 mg PRN QHS PRN PO CONSTIPATION; Start 09/29/16 at 23:45 Apixaban (Eliquis) 5 mg BID PO Last administered on 10/04/16 19:50; Start at 09:00 Clonazepam (KlonoPIN) 0.5 mg BID PO Last administered on 10/04/16 19:49; Start 09/30/16 at 09:00 Divalproex Sodium (Depakote) 500 mg BID PO Last administered on 10/04/16 19:49 ; Start 09/30/16 at 09:00 Chlorhexidine Gluconate (Peridex) 15 ml DAILY MM Last administered on 07:14; Start 09/30/16 at 09:00 Folic Acid (Folic Acid) 1 mg HS PO Last administered on 10/04/16 19:49; Start 09/30/16 at 21:00 Furosemide (Lasix) 20 mg HS PO Last administered on 10/04/16 19:49; Start at 21:00 Losartan Potassium (Cozaar) 50 mg DAILY PO Last administered on 10/04/16 07:15 ; Start 09/30/16 at 09:00 Metoprolol Succinate (Toprol Xl) 50 mg BID PO Last administered on 10/04/16 19 :49; Start 09/30/16 at 09:00 Polyethylene Glycol (miraLAX) 17 gm PRN DAILY PRN PO CONSTIPATION; Start at 00:00 Senna/Docusate Sodium (Senna Plus) 1 tab HS PO Last administered on 10/04/16 19:49; Start 09/30/16 at 21:00 Potassium Chloride (Klor-Con) 10 meq DAILY PO Last administered on 10/04/16 07 :14; Start 09/30/16 at 09:00 Non-Formulary Medication 1 charles PRN DAILY PRN TP RASH; Start 09/30/16 at 00:00; Status UNV Buspirone HCl (Buspar) 5 mg TID PO Last administered on 10/04/16 19:50; Start 10/01/16 at 21:00 Non-Formulary Medication 1 applic PRN DAILY PRN TOP dry face Last administered on 10/03/16 09:24; Start 10/02/16 at 17:30 Non-Formulary Medication 1 charles PRN DAILY PRN TOP dry scalp; Start 10/02/16 at 17:30 [place] Carbonate 300 mg HS PO Last administered on 10/04/16 19:50; Start at 21:00 Active Scripts Active Reported [sulfatamide lotion] 1 Applic TOP PRN DAILY PRN [triamcinolone shampo] 0.1% Charles 1 Charles TOP PRN DAILY PRN Sulfacetamide-Sulfur 10-5% Crm (Sulfacetamide Sodium/Sulfur) 57 Gm Cream..g. 1 Charles TP PRN DAILY PRN Potassium Chloride 10 Meq Tablet.er 10 Meq PO DAILY Miralax (Polyethylene Glycol 3350) 17 Gm Powd.pack 17 Gm PO PRN DAILY PRN Metoprolol Succinate ( Xl ) (Metoprolol Succinate) 50 Mg Tab.er.24h 50 Mg PO BID Losartan Potassium 50 Mg Tablet 50 Mg PO DAILY Furosemide 20 Mg Tablet 20 Mg PO HS Folic Acid 1 Mg Tablet 1 Mg PO HS Senna-Docusate Sodium Tablet (Sennosides/Docusate Sodium) 1 Each Tablet 1 Each PO HS Peridex (Chlorhexidine Gluconate) 15 Ml Mouthwash 15 Ml MM DAILY Eliquis (Apixaban) 5 Mg Tablet 5 Mg PO BID Latuda (Lurasidone Hcl) 40 Mg Tablet 60 Mg PO DAILY Divalproex Sodium 500 Mg Tablet.dr 1 Tab PO BID Clonazepam 0.5 Mg Tablet 0.5 Mg PO BID Diagnosis: Problems: (1) Bipolar affective, mixed, sev w/ psych (2) Anxiety disorder (3) Dementia, vascular, with delusions (4) Dementia in Alzheimer's disease with delusions (5) Impulse control disorder JUDAH ALEGRIA MD Oct 04, 2016 23:14
[2016-10-05 05:37] VITALS: BP 118/49
[2016-10-05] MEDS: CHLORHEXIDINE 0.12% 15 ML MOUTHWASH. MM SCH (07:16)
[2016-10-05] MEDS: LURASIDONE 40 MG TABLET. PO SCH (07:16)
[2016-10-05] MEDS: POTASSIUM CHLORIDE 10 MEQ TABLET.ER. PO SCH (07:17)
[2016-10-05] MEDS: clonazePAM 0.5 MG TABLET PO SCH ×2 (07:17→20:17)
[2016-10-05] MEDS: busPIRone 5 MG TABLET. PO SCH ×3 (07:17→20:16)
[2016-10-05] MEDS: METOPROLOL SUCC 24HR ER 50 MG TAB.ER.24H. PO SCH ×2 (07:17→20:17)
[2016-10-05] MEDS: LOSARTAN 50 MG TABLET. PO SCH (07:17)
[2016-10-05] MEDS: APIXABAN 5 MG TABLET. PO SCH ×2 (07:17→20:20)
[2016-10-05] MEDS: DIVALPROEX SODIUM 250 MG TABLET.DR. PO SCH ×2 (07:18→20:16)
[2016-10-05 16:11] VITALS: BP 160/70
--- NOTE | 2016-10-05 19:44 | PDOC ---
Exam Derrell Demential Exam: Derrell Note: Please also refer to the separate dictated note~for this date of service dictated separately.~Patient seen individually. Discussed the patient with Nursing staff reviewed the chart.~Reviewed interim history and current functioning. Reviewed vital signs,~Labs/ Radiology~and current medications noted below. Continue current treatment with the changes noted in the dictated addendum note Assessment: Vital Signs: Vital Signs Date Time Temp Pulse Resp B/P (MAP) Pulse Ox O2 Delivery O2 Flow Rate FiO2 10/05/16 16:11 98.3 82 20 160/70 (100) 97 Room Air I&O Intake and Output 10/05/16 07:00 Intake Total 965 ml Balance 965 ml Intake Oral 965 ml Current Medications: Meds: Current Medications Acetaminophen (Tylenol) 650 mg PRN Q6HRS PRN PO PAIN / TEMP Last administered on 10/03/16 12:42; Start 09/29/16 at 23:45 Multi-Ingredient Ointment (Analgesic [place]) 1 charles PRN QID PRN TP MUSCLE PAIN; Start 09/29/16 at 23:45 Al Hydroxide/Mg Hydroxide (Mylanta Plus Xs) 15 ml PRN AFTMEALHC PRN PO DYSPEPSIA; Start 09/29/16 at 23:45 Magnesium Hydroxide (Milk Of Magnesia) 2,400 mg PRN QHS PRN PO CONSTIPATION; Start 09/29/16 at 23:45 Apixaban (Eliquis) 5 mg BID PO Last administered on 10/05/16 07:17; Start at 09:00 Clonazepam (KlonoPIN) 0.5 mg BID PO Last administered on 10/05/16 07:17; Start 09/30/16 at 09:00 Divalproex Sodium (Depakote) 500 mg BID PO Last administered on 10/05/16 07:18 ; Start 09/30/16 at 09:00 Chlorhexidine Gluconate (Peridex) 15 ml DAILY MM Last administered on 07:16; Start 09/30/16 at 09:00 Folic Acid (Folic Acid) 1 mg HS PO Last administered on 10/04/16 19:49; Start 09/30/16 at 21:00 Furosemide (Lasix) 20 mg HS PO Last administered on 10/04/16 19:49; Start at 21:00 Losartan Potassium (Cozaar) 50 mg DAILY PO Last administered on 10/05/16 07:17 ; Start 09/30/16 at 09:00 Metoprolol Succinate (Toprol Xl) 50 mg BID PO Last administered on 10/05/16 07 :17; Start 09/30/16 at 09:00 Polyethylene Glycol (miraLAX) 17 gm PRN DAILY PRN PO CONSTIPATION; Start at 00:00 Senna/Docusate Sodium (Senna Plus) 1 tab HS PO Last administered on 10/04/16 19:49; Start 09/30/16 at 21:00 Potassium Chloride (Klor-Con) 10 meq DAILY PO Last administered on 10/05/16 07 :17; Start 09/30/16 at 09:00 Non-Formulary Medication 1 charles PRN DAILY PRN TP RASH; Start 09/30/16 at 00:00; Status UNV Buspirone HCl (Buspar) 5 mg TID PO Last administered on 10/05/16 13:10; Start 10/01/16 at 21:00 Non-Formulary Medication 1 applic PRN DAILY PRN TOP dry face Last administered on 10/03/16 09:24; Start 10/02/16 at 17:30 Non-Formulary Medication 1 charles PRN DAILY PRN TOP dry scalp; Start 10/02/16 at 17:30 [place] Carbonate 300 mg HS PO Last administered on 10/04/16 19:50; Start at 21:00 Active Scripts Active Reported [sulfatamide lotion] 1 Applic TOP PRN DAILY PRN [triamcinolone shampo] 0.1% Charles 1 Charles TOP PRN DAILY PRN Sulfacetamide-Sulfur 10-5% Crm (Sulfacetamide Sodium/Sulfur) 57 Gm Cream..g. 1 Charles TP PRN DAILY PRN Potassium Chloride 10 Meq Tablet.er 10 Meq PO DAILY Miralax (Polyethylene Glycol 3350) 17 Gm Powd.pack 17 Gm PO PRN DAILY PRN Metoprolol Succinate ( Xl ) (Metoprolol Succinate) 50 Mg Tab.er.24h 50 Mg PO BID Losartan Potassium 50 Mg Tablet 50 Mg PO DAILY Furosemide 20 Mg Tablet 20 Mg PO HS Folic Acid 1 Mg Tablet 1 Mg PO HS Senna-Docusate Sodium Tablet (Sennosides/Docusate Sodium) 1 Each Tablet 1 Each PO HS Peridex (Chlorhexidine Gluconate) 15 Ml Mouthwash 15 Ml MM DAILY Eliquis (Apixaban) 5 Mg Tablet 5 Mg PO BID Latuda (Lurasidone Hcl) 40 Mg Tablet 60 Mg PO DAILY Divalproex Sodium 500 Mg Tablet.dr 1 Tab PO BID Clonazepam 0.5 Mg Tablet 0.5 Mg PO BID Diagnosis: Problems: (1) Bipolar affective, mixed, sev w/ psych (2) Anxiety disorder (3) Dementia, vascular, with delusions (4) Dementia in Alzheimer's disease with delusions (5) Impulse control disorder JUDAH ALEGRIA MD Oct 05, 2016 19:44
[2016-10-05] MEDS: FOLIC ACID 1 MG TABLET PO SCH (20:16)
[2016-10-05] MEDS: FUROSEMIDE 20 MG TABLET PO SCH (20:16)
[2016-10-05] MEDS: LITHIUM CARBONATE 300 MG TABLET PO SCH (20:17)
[2016-10-05] MEDS: SENNOSIDES/DOCUSATE 8.6/50MG TABLET. PO SCH (20:17)
[2016-10-05 21:22] VITALS: BP 112/66
--- NOTE | 2016-10-05 22:48 | RAD ---
CT HEAD without CONTRAST Clinical indications: Fall tonight, hit left frontal side of forehead with abrasion and swelling. Hx: Fall last week, hit posterior part of head. Old images sent from 09/29/16 for comparison. COMPARISON: September 29, 2016. Technique: Noncontrast axial cross sectional scanning of the head was performed. Findings: No acute intracranial hemorrhage or midline shift or mass-effect or hydrocephalus or extra-axial fluid collection is seen. No focal hypodense area or sulci effacement is seen to indicate an acute infarct or edema radiographically. There is a new left periorbital and frontal soft tissue edema or hematoma. No skull fracture or pneumocephalus is seen. No opacification of the mastoid sinuses or the paranasal sinuses is seen. The maxillary sinuses are not seen in this study. Impression: No acute intracranial abnormality is seen. PQRS compliance Statement One or more of the following individualized dose reduction techniques were utilized for this study: 1. Automated exposure control 2. Adjustment of the mA and/or kV according to patient size 3. Use of iterative reconstruction technique Electronically signed by: Nelson Aguirre MD (10/05/2016 10:45 PM) [facility]
--- NOTE | 2016-10-06 00:56 | PN ---
DATE: 10/04/2016 This is a late entry for 10/04/2016 and covers elements not covered in my initial note of 10/04/2016. SUBJECTIVE: The patient reportedly had a good night, had a shower, was going to refuse a.m. meds, but staff told him his sister would not like that, so he took them. REVIEW OF SYSTEMS: Ambulation impaired. No CV, , pulmonary, eye system symptoms on review. Reliability poor. He is somewhat anxious, suspicious, turning away from me as I sat with him. No CV, , pulmonary, eye system symptoms on review. MENTAL STATUS EXAM: Oriented to himself. Insight, judgment, recent and remote memory, attention, concentration, fund of knowledge poor, consistent with his diagnosis as mentioned in my initial note. PLAN: Continue current psychotropics. [place] was initiated. We will check a level. Continue Depakote, Klonopin, Latuda was increased. Maintain BuSpar. Reviewed drug interactions, risk/benefit ratio favors no further change as of now. MAN Ty ALEGRIA MD DR: JESÚS/liliane JOB#: [id number] / [id number]
[2016-10-06 06:16] VITALS: BP 126/83
[2016-10-06 07:57] LABS: BASO % 1 % (0-3); EOS # 0.3 x10^3/uL (0.0-0.7); EOS % 4 % (0-3); HEMOGLOBIN 11.7 g/dL (13.0-17.5); LYMPH # 0.9 x10^3/uL (1.0-4.8); LYMPH % 14 % (24-48); MEAN CORPUSCULAR HEMOGLOBIN 30 pg (25-35); MEAN CORPUSCULAR HGB CONC 33 g/dL (31-37); MEAN CORPUSCULAR VOLUME 93 fL (79-100); MONO # 0.6 x10^3/uL (0.0-1.1); MONO % 10 % (0-9); NEUT # 4.6 x10^3uL (1.8-7.7); NEUT % 71 % (31-73); PLATELET COUNT 166 x10^3/uL (140-400); RED BLOOD COUNT 3.88 x10^6/uL (4.30-5.70); RED CELL DISTRIBUTION WIDTH 15.4 % (11.5-14.5); WHITE BLOOD COUNT 6.5 x10^3/uL (4.0-11.0)
[2016-10-06 08:03] LABS: ALBUMIN 3.7 g/dL (3.4-5.0); CALCIUM 9.7 mg/dL (8.5-10.1); CREATININE 1.3 mg/dL (0.7-1.3); GFR 55.9; TOTAL BILIRUBIN 0.5 mg/dL (0.2-1.0); TOTAL PROTEIN 7.4 g/dL (6.4-8.2)
[2016-10-06] MEDS: CHLORHEXIDINE 0.12% 15 ML MOUTHWASH. MM SCH (08:06)
[2016-10-06] MEDS: clonazePAM 0.5 MG TABLET PO SCH ×2 (08:06→19:24)
[2016-10-06] MEDS: METOPROLOL SUCC 24HR ER 50 MG TAB.ER.24H. PO SCH ×2 (08:07→19:23)
[2016-10-06] MEDS: busPIRone 5 MG TABLET. PO SCH ×3 (08:07→19:22)
[2016-10-06] MEDS: LOSARTAN 50 MG TABLET. PO SCH (08:07)
[2016-10-06] MEDS: POTASSIUM CHLORIDE 10 MEQ TABLET.ER. PO SCH (08:08)
[2016-10-06] MEDS: DIVALPROEX SODIUM 250 MG TABLET.DR. PO SCH (08:08)
[2016-10-06] MEDS: LURASIDONE 40 MG TABLET. PO SCH (08:09)
[2016-10-06] MEDS: APIXABAN 5 MG TABLET. PO SCH ×2 (08:11→19:22)
[2016-10-06 14:08] LABS: LI 0.2 mmol/L (0.6-1.2)
[2016-10-06 15:59] VITALS: BP 161/80
[2016-10-06] MEDS: FOLIC ACID 1 MG TABLET PO SCH (19:22)
[2016-10-06] MEDS: SENNOSIDES/DOCUSATE 8.6/50MG TABLET. PO SCH (19:23)
[2016-10-06] MEDS: FUROSEMIDE 20 MG TABLET PO SCH (19:23)
[2016-10-06] MEDS: LITHIUM CARBONATE 300 MG TABLET PO SCH (19:32)
--- NOTE | 2016-10-06 19:43 | PDOC ---
Exam Derrell Demential Exam: Derrell Note: Please also refer to the separate dictated note~for this date of service dictated separately.~Patient seen individually. Discussed the patient with Nursing staff reviewed the chart.~Reviewed interim history and current functioning. Reviewed vital signs,~Labs/ Radiology~and current medications noted below. Continue current treatment with the changes noted in the dictated addendum note Assessment: Vital Signs: Vital Signs Date Time Temp Pulse Resp B/P (MAP) Pulse Ox O2 Delivery O2 Flow Rate FiO2 10/06/16 19:23 59 161/80 10/06/16 15:59 98.3 18 95 10/05/16 21:22 Room Air I&O Intake and Output 10/06/16 06:59 Intake Total 1080 ml Balance 1080 ml Intake Oral 1080 ml Labs: Laboratory Tests Test 10/06/16 07:36 White Blood Count 6.5 x10^3/uL (4.0-11.0) Red Blood Count 3.88 x10^6/uL (4.30-5.70) L Hemoglobin 11.7 g/dL (13.0-17.5) L Hematocrit 36.0 % (39.0-53.0) L Mean Corpuscular Volume 93 fL (79-100) Mean Corpuscular Hemoglobin 30 pg (25-35) Mean Corpuscular Hemoglobin Concent 33 g/dL (31-37) Red Cell Distribution Width 15.4 % (11.5-14.5) H Platelet Count 166 x10^3/uL (140-400) Neutrophils (%) (Auto) 71 % (31-73) Lymphocytes (%) (Auto) 14 % (24-48) L Monocytes (%) (Auto) 10 % (0-9) H Eosinophils (%) (Auto) 4 % (0-3) H Basophils (%) (Auto) 1 % (0-3) Neutrophils # (Auto) 4.6 x10^3uL (1.8-7.7) Lymphocytes # (Auto) 0.9 x10^3/uL (1.0-4.8) L Monocytes # (Auto) 0.6 x10^3/uL (0.0-1.1) Eosinophils # (Auto) 0.3 x10^3/uL (0.0-0.7) Basophils # (Auto) 0.0 x10^3/uL (0.0-0.2) Sodium Level 148 mmol/L (136-145) H Potassium Level 4.0 mmol/L (3.5-5.1) Chloride Level 110 mmol/L (98-107) H Carbon Dioxide Level 34 mmol/L (21-32) H Anion Gap 4 (6-14) L Blood Urea Nitrogen 23 mg/dL (8-26) Creatinine 1.3 mg/dL (0.7-1.3) Estimated GFR (Cockcroft-Gault) 55.9 BUN/Creatinine Ratio 18 (6-20) Glucose Level 94 mg/dL (70-99) Calcium Level 9.7 mg/dL (8.5-10.1) Total Bilirubin 0.5 mg/dL (0.2-1.0) Aspartate Amino Transferase (AST) 23 U/L (15-37) Alanine Aminotransferase (ALT) 21 U/L (16-63) Alkaline Phosphatase 67 U/L (46-116) Total Protein 7.4 g/dL (6.4-8.2) Albumin 3.7 g/dL (3.4-5.0) Albumin/Globulin Ratio 1.0 (1.0-1.7) [place] Level 0.2 mmol/L (0.6-1.2) L [place] Last Dose Date 10/06/16 [place] Last Dose Time 2100 Current Medications: Meds: Current Medications Acetaminophen (Tylenol) 650 mg PRN Q6HRS PRN PO PAIN / TEMP Last administered on 10/03/16 12:42; Start 09/29/16 at 23:45 Multi-Ingredient Ointment (Analgesic [place]) 1 charles PRN QID PRN TP MUSCLE PAIN; Start 09/29/16 at 23:45 Al Hydroxide/Mg Hydroxide (Mylanta Plus Xs) 15 ml PRN AFTMEALHC PRN PO DYSPEPSIA; Start 09/29/16 at 23:45 Magnesium Hydroxide (Milk Of Magnesia) 2,400 mg PRN QHS PRN PO CONSTIPATION; Start 09/29/16 at 23:45 Apixaban (Eliquis) 5 mg BID PO Last administered on 10/06/16 19:22; Start at 09:00 Clonazepam (KlonoPIN) 0.5 mg BID PO Last administered on 10/06/16 19:24; Start 09/30/16 at 09:00 Divalproex Sodium (Depakote) 500 mg BID PO Last administered on 10/06/16 08:08 ; Start 09/30/16 at 09:00; Stop 10/06/16 at 18:27; Status DC Chlorhexidine Gluconate (Peridex) 15 ml DAILY MM Last administered on 08:06; Start 09/30/16 at 09:00 Folic Acid (Folic Acid) 1 mg HS PO Last administered on 10/06/16 19:22; Start 09/30/16 at 21:00 Furosemide (Lasix) 20 mg HS PO Last administered on 10/06/16 19:23; Start at 21:00 Losartan Potassium (Cozaar) 50 mg DAILY PO Last administered on 10/06/16 08:07 ; Start 09/30/16 at 09:00 Metoprolol Succinate (Toprol Xl) 50 mg BID PO Last administered on 10/06/16 19 :23; Start 09/30/16 at 09:00 Polyethylene Glycol (miraLAX) 17 gm PRN DAILY PRN PO CONSTIPATION; Start at 00:00 Senna/Docusate Sodium (Senna Plus) 1 tab HS PO Last administered on 10/06/16 19:23; Start 09/30/16 at 21:00 Potassium Chloride (Klor-Con) 10 meq DAILY PO Last administered on 10/06/16 08 :08; Start 09/30/16 at 09:00 Non-Formulary Medication 1 charles PRN DAILY PRN TP RASH; Start 09/30/16 at 00:00; Status UNV Buspirone HCl (Buspar) 5 mg TID PO Last administered on 10/06/16 19:22; Start 10/01/16 at 21:00 Non-Formulary Medication 1 applic PRN DAILY PRN TOP dry face Last administered on 10/03/16 09:24; Start 10/02/16 at 17:30 Non-Formulary Medication 1 charles PRN DAILY PRN TOP dry scalp; Start 10/02/16 at 17:30 [place] Carbonate 300 mg HS PO Last administered on 10/05/16 20:17; Start at 21:00; Stop 10/06/16 at 18:29; Status DC [place] Carbonate 450 mg HS PO Last administered on 10/06/16t 19:32; Start at 21:00 Active Scripts Active Reported [sulfatamide lotion] 1 Applic TOP PRN DAILY PRN [triamcinolone shampo] 0.1% Charles 1 Charles TOP PRN DAILY PRN Sulfacetamide-Sulfur 10-5% Crm (Sulfacetamide Sodium/Sulfur) 57 Gm Cream..g. 1 Charles TP PRN DAILY PRN Potassium Chloride 10 Meq Tablet.er 10 Meq PO DAILY Miralax (Polyethylene Glycol 3350) 17 Gm Powd.pack 17 Gm PO PRN DAILY PRN Metoprolol Succinate ( Xl ) (Metoprolol Succinate) 50 Mg Tab.er.24h 50 Mg PO BID Losartan Potassium 50 Mg Tablet 50 Mg PO DAILY Furosemide 20 Mg Tablet 20 Mg PO HS Folic Acid 1 Mg Tablet 1 Mg PO HS Senna-Docusate Sodium Tablet (Sennosides/Docusate Sodium) 1 Each Tablet 1 Each PO HS Peridex (Chlorhexidine Gluconate) 15 Ml Mouthwash 15 Ml MM DAILY Eliquis (Apixaban) 5 Mg Tablet 5 Mg PO BID Latuda (Lurasidone Hcl) 40 Mg Tablet 60 Mg PO DAILY Divalproex Sodium 500 Mg Tablet.dr 1 Tab PO BID Clonazepam 0.5 Mg Tablet 0.5 Mg PO BID Diagnosis: Problems: (1) Bipolar affective, mixed, sev w/ psych (2) Anxiety disorder (3) Dementia, vascular, with delusions (4) Dementia in Alzheimer's disease with delusions (5) Impulse control disorder JUDAH ALEGRIA MD Oct 06, 2016 19:43
--- NOTE | 2016-10-06 23:53 | PN ---
DATE: 10/05/2016 This late entry for date of service 10/05/2016 covers elements not covered in my initial note 10/05/2016. SUBJECTIVE: I met with the patient evening of 10/05/2016. The patient has had a good day, less agitated, less labile, less aggressive, not dropping himself to the floor, all of which is a slight improvement. REVIEW OF SYSTEMS: Ambulation impaired, in a wheelchair. No CV, , pulmonary, eye, ENT system symptoms on review. He is somewhat irritable as I met with him, turning his back towards me refusing to interact, but despite this, he has done better during the day. MENTAL STATUS EXAM: Insight, judgment, recent and remote memory, attention, concentration, fund of knowledge poor, consistent with his diagnosis mentioned in my initial note. PLAN: Continue current psychotropics. Follow lithium level. Since valproic acid level is therapeutic, adjust as clinically indicated. Reviewed drug interactions. Risk/benefit ratio favors no further change as of now. MAN Ty ALEGRIA MD DR: JESÚS/liliane JOB#: [id number] / [id number]
[2016-10-07 05:48] VITALS: BP 97/61
[2016-10-07] MEDS: CHLORHEXIDINE 0.12% 15 ML MOUTHWASH. MM SCH (08:51)
[2016-10-07] MEDS: LURASIDONE 40 MG TABLET. PO SCH (08:51)
[2016-10-07] MEDS: busPIRone 5 MG TABLET. PO SCH ×3 (08:52→19:49)
[2016-10-07] MEDS: APIXABAN 5 MG TABLET. PO SCH ×2 (08:52→19:49)
[2016-10-07] MEDS: clonazePAM 0.5 MG TABLET PO SCH ×2 (08:52→19:50)
[2016-10-07] MEDS: POTASSIUM CHLORIDE 10 MEQ TABLET.ER. PO SCH (08:53)
[2016-10-07] MEDS: METOPROLOL SUCC 24HR ER 50 MG TAB.ER.24H. PO SCH ×2 (08:53→19:49)
[2016-10-07] MEDS: LOSARTAN 50 MG TABLET. PO SCH (08:54)
[2016-10-07 16:01] VITALS: BP 113/67
--- NOTE | 2016-10-07 18:39 | PDOC ---
Exam Derrell Demential Exam: Derrell Note: Please also refer to the separate dictated note~for this date of service dictated separately.~Patient seen individually. Discussed the patient with Nursing staff reviewed the chart.~Reviewed interim history and current functioning. Reviewed vital signs,~Labs/ Radiology~and current medications noted below. Continue current treatment with the changes noted in the dictated addendum note Assessment: Vital Signs: Vital Signs Date Time Temp Pulse Resp B/P (MAP) Pulse Ox O2 Delivery O2 Flow Rate FiO2 10/07/16 16:01 97.2 89 20 113/67 (82) 100 10/05/16 21:22 Room Air I&O Intake and Output 10/07/16 07:00 Intake Total 900 ml Balance 900 ml Intake Oral 900 ml Current Medications: Meds: Current Medications Acetaminophen (Tylenol) 650 mg PRN Q6HRS PRN PO PAIN / TEMP Last administered on 10/03/16 12:42; Start 09/29/16 at 23:45 Multi-Ingredient Ointment (Analgesic [place]) 1 charles PRN QID PRN TP MUSCLE PAIN; Start 09/29/16 at 23:45 Al Hydroxide/Mg Hydroxide (Mylanta Plus Xs) 15 ml PRN AFTMEALHC PRN PO DYSPEPSIA; Start 09/29/16 at 23:45 Magnesium Hydroxide (Milk Of Magnesia) 2,400 mg PRN QHS PRN PO CONSTIPATION; Start 09/29/16 at 23:45 Apixaban (Eliquis) 5 mg BID PO Last administered on 10/07/16 08:52; Start at 09:00 Clonazepam (KlonoPIN) 0.5 mg BID PO Last administered on 10/07/16 08:52; Start 09/30/16 at 09:00 Divalproex Sodium (Depakote) 500 mg BID PO Last administered on 10/06/16 08:08 ; Start 09/30/16 at 09:00; Stop 10/06/16 at 18:27; Status DC Chlorhexidine Gluconate (Peridex) 15 ml DAILY MM Last administered on 08:51; Start 09/30/16 at 09:00 Folic Acid (Folic Acid) 1 mg HS PO Last administered on 10/06/16 19:22; Start 09/30/16 at 21:00 Furosemide (Lasix) 20 mg HS PO Last administered on 10/06/16 19:23; Start at 21:00 Losartan Potassium (Cozaar) 50 mg DAILY PO Last administered on 10/06/16 08:07 ; Start 09/30/16 at 09:00 Metoprolol Succinate (Toprol Xl) 50 mg BID PO Last administered on 10/06/16 19 :23; Start 09/30/16 at 09:00 Polyethylene Glycol (miraLAX) 17 gm PRN DAILY PRN PO CONSTIPATION; Start at 00:00 Senna/Docusate Sodium (Senna Plus) 1 tab HS PO Last administered on 10/06/16 19:23; Start 09/30/16 at 21:00 Potassium Chloride (Klor-Con) 10 meq DAILY PO Last administered on 10/07/16 08 :53; Start 09/30/16 at 09:00 Non-Formulary Medication 1 charles PRN DAILY PRN TP RASH; Start 09/30/16 at 00:00; Status UNV Buspirone HCl (Buspar) 5 mg TID PO Last administered on 10/07/16 13:06; Start 10/01/16 at 21:00 Non-Formulary Medication 1 applic PRN DAILY PRN TOP dry face Last administered on 10/03/16 09:24; Start 10/02/16 at 17:30 Non-Formulary Medication 1 charles PRN DAILY PRN TOP dry scalp; Start 10/02/16 at 17:30 [place] Carbonate 300 mg HS PO Last administered on 10/05/16 20:17; Start at 21:00; Stop 10/06/16 at 18:29; Status DC [place] Carbonate 450 mg HS PO Last administered on 10/06/16 19:32; Start at 21:00 Active Scripts Active Reported [sulfatamide lotion] 1 Applic TOP PRN DAILY PRN [triamcinolone shampo] 0.1% Charles 1 Charles TOP PRN DAILY PRN Sulfacetamide-Sulfur 10-5% Crm (Sulfacetamide Sodium/Sulfur) 57 Gm Cream..g. 1 Charles TP PRN DAILY PRN Potassium Chloride 10 Meq Tablet.er 10 Meq PO DAILY Miralax (Polyethylene Glycol 3350) 17 Gm Powd.pack 17 Gm PO PRN DAILY PRN Metoprolol Succinate ( Xl ) (Metoprolol Succinate) 50 Mg Tab.er.24h 50 Mg PO BID Losartan Potassium 50 Mg Tablet 50 Mg PO DAILY Furosemide 20 Mg Tablet 20 Mg PO HS Folic Acid 1 Mg Tablet 1 Mg PO HS Senna-Docusate Sodium Tablet (Sennosides/Docusate Sodium) 1 Each Tablet 1 Each PO HS Peridex (Chlorhexidine Gluconate) 15 Ml Mouthwash 15 Ml MM DAILY Eliquis (Apixaban) 5 Mg Tablet 5 Mg PO BID Latuda (Lurasidone Hcl) 40 Mg Tablet 60 Mg PO DAILY Divalproex Sodium 500 Mg Tablet.dr 1 Tab PO BID Clonazepam 0.5 Mg Tablet 0.5 Mg PO BID Diagnosis: Problems: (1) Impulse control disorder (2) Dementia in Alzheimer's disease with delusions (3) Dementia, vascular, with delusions (4) Anxiety disorder (5) Bipolar affective, mixed, sev w/ psych JUDAH ALEGRIA MD Oct 07, 2016 18:39
[2016-10-07] MEDS: FUROSEMIDE 20 MG TABLET PO SCH (19:48)
[2016-10-07] MEDS: SENNOSIDES/DOCUSATE 8.6/50MG TABLET. PO SCH (19:49)
[2016-10-07] MEDS: LITHIUM CARBONATE 300 MG TABLET PO SCH (19:49)
[2016-10-07] MEDS: FOLIC ACID 1 MG TABLET PO SCH (19:49)
--- NOTE | 2016-10-08 03:00 | PN ---
DATE: 10/06/2016 This is a late entry for 10/06/2016 and covers the elements not covered in my initial note. HISTORY OF PRESENT ILLNESS: I met with the patient in the evening of 10/06/2016. Reportedly, the patient's sister visited and felt the patient was drooling, having increased shaking, mood swings. He did have a fall the previous evening. CT head was negative. Sister feels the Depakote is causative for his above symptoms and wanted this discontinued. We will go ahead and do this even though I would have ideally preferred to wait a little longer to see how he adapts to it, especially since the valproic acid level is therapeutic at 58. Nevertheless, he has been started on lithium and we will see how he does on that. REVIEW OF SYSTEMS: Ambulation impaired, in a wheelchair. No CV, , pulmonary, eye, ENT system symptoms on review. Reliability poor. MENTAL STATUS EXAM: Oriented to himself. Insight, judgment, recent and remote memory, attention, concentration, fund of knowledge poor, consistent with his diagnosis mentioned in my initial note. PLAN: Stop the Depakote. [place] level is 0.213, 100 mg at bedtime increased to 450 mg p.o. at bedtime. Check CBC, CMP, lithium level in 3 days. Adjust further as clinically indicated. Reviewed drug interactions, risk/benefit ratio favors no further change. MAN Ty ALEGRIA MD DR: JESÚS/liliane JOB#: [id number] / [id number]
[2016-10-08 06:20] VITALS: BP 106/66
[2016-10-08] MEDS: APIXABAN 5 MG TABLET. PO SCH ×2 (07:33→19:33)
[2016-10-08] MEDS: CHLORHEXIDINE 0.12% 15 ML MOUTHWASH. MM SCH (07:33)
[2016-10-08] MEDS: POTASSIUM CHLORIDE 10 MEQ TABLET.ER. PO SCH (07:33)
[2016-10-08] MEDS: busPIRone 5 MG TABLET. PO SCH ×3 (07:33→19:33)
[2016-10-08] MEDS: METOPROLOL SUCC 24HR ER 50 MG TAB.ER.24H. PO SCH ×2 (07:34→19:31)
[2016-10-08] MEDS: LOSARTAN 50 MG TABLET. PO SCH (07:34)
[2016-10-08] MEDS: LURASIDONE 40 MG TABLET. PO SCH (07:35)
[2016-10-08] MEDS: clonazePAM 0.5 MG TABLET PO SCH ×2 (07:36→19:33)
[2016-10-08 16:21] VITALS: BP 154/89
--- NOTE | 2016-10-08 18:26 | PDOC ---
Exam Derrell Demential Exam: Derrell Note: Please also refer to the separate dictated note~for this date of service dictated separately.~Patient seen individually. Discussed the patient with Nursing staff reviewed the chart.~Reviewed interim history and current functioning. Reviewed vital signs,~Labs/ Radiology~and current medications noted below. Continue current treatment with the changes noted in the dictated addendum note Assessment: Vital Signs: Vital Signs Date Time Temp Pulse Resp B/P (MAP) Pulse Ox O2 Delivery O2 Flow Rate FiO2 10/08/16 16:21 98.9 82 18 154/89 (110) 97 10/05/16 21:22 Room Air I&O Intake and Output 10/08/16 07:00 Intake Total 1680 ml Balance 1680 ml Intake Oral 1680 ml # Bowel Movements 2 Current Medications: Meds: Current Medications Acetaminophen (Tylenol) 650 mg PRN Q6HRS PRN PO PAIN / TEMP Last administered on 10/03/16 12:42; Start 09/29/16 at 23:45 Multi-Ingredient Ointment (Analgesic [place]) 1 charles PRN QID PRN TP MUSCLE PAIN; Start 09/29/16 at 23:45 Al Hydroxide/Mg Hydroxide (Mylanta Plus Xs) 15 ml PRN AFTMEALHC PRN PO DYSPEPSIA; Start 09/29/16 at 23:45 Magnesium Hydroxide (Milk Of Magnesia) 2,400 mg PRN QHS PRN PO CONSTIPATION; Start 09/29/16 at 23:45 Apixaban (Eliquis) 5 mg BID PO Last administered on 10/08/16 07:33; Start at 09:00 Clonazepam (KlonoPIN) 0.5 mg BID PO Last administered on 10/08/16 07:36; Start 09/30/16 at 09:00 Divalproex Sodium (Depakote) 500 mg BID PO Last administered on 10/06/16 08:08 ; Start 09/30/16 at 09:00; Stop 10/06/16 at 18:27; Status DC Chlorhexidine Gluconate (Peridex) 15 ml DAILY MM Last administered on 07:33; Start 09/30/16 at 09:00 Folic Acid (Folic Acid) 1 mg HS PO Last administered on 10/07/16 19:49; Start 09/30/16 at 21:00 Furosemide (Lasix) 20 mg HS PO Last administered on 10/07/16 19:48; Start at 21:00 Losartan Potassium (Cozaar) 50 mg DAILY PO Last administered on 10/08/16 07:34 ; Start 09/30/16 at 09:00 Metoprolol Succinate (Toprol Xl) 50 mg BID PO Last administered on 10/08/16 07 :34; Start 09/30/16 at 09:00 Polyethylene Glycol (miraLAX) 17 gm PRN DAILY PRN PO CONSTIPATION; Start at 00:00 Senna/Docusate Sodium (Senna Plus) 1 tab HS PO Last administered on 10/07/16 19:49; Start 09/30/16 at 21:00 Potassium Chloride (Klor-Con) 10 meq DAILY PO Last administered on 10/08/16 07 :33; Start 09/30/16 at 09:00 Non-Formulary Medication 1 charles PRN DAILY PRN TP RASH; Start 09/30/16 at 00:00; Status UNV Buspirone HCl (Buspar) 5 mg TID PO Last administered on 10/08/16 13:08; Start 10/01/16 at 21:00 Non-Formulary Medication 1 applic PRN DAILY PRN TOP dry face Last administered on 10/03/16 09:24; Start 10/02/16 at 17:30 Non-Formulary Medication 1 charles PRN DAILY PRN TOP dry scalp; Start 10/02/16 at 17:30 [place] Carbonate 300 mg HS PO Last administered on 10/05/16 20:17; Start at 21:00; Stop 10/06/16 at 18:29; Status DC [place] Carbonate 450 mg HS PO Last administered on 10/07/16 19:49; Start at 21:00 Active Scripts Active Reported [sulfatamide lotion] 1 Applic TOP PRN DAILY PRN [triamcinolone shampo] 0.1% Charles 1 Charles TOP PRN DAILY PRN Sulfacetamide-Sulfur 10-5% Crm (Sulfacetamide Sodium/Sulfur) 57 Gm Cream..g. 1 Charles TP PRN DAILY PRN Potassium Chloride 10 Meq Tablet.er 10 Meq PO DAILY Miralax (Polyethylene Glycol 3350) 17 Gm Powd.pack 17 Gm PO PRN DAILY PRN Metoprolol Succinate ( Xl ) (Metoprolol Succinate) 50 Mg Tab.er.24h 50 Mg PO BID Losartan Potassium 50 Mg Tablet 50 Mg PO DAILY Furosemide 20 Mg Tablet 20 Mg PO HS Folic Acid 1 Mg Tablet 1 Mg PO HS Senna-Docusate Sodium Tablet (Sennosides/Docusate Sodium) 1 Each Tablet 1 Each PO HS Peridex (Chlorhexidine Gluconate) 15 Ml Mouthwash 15 Ml MM DAILY Eliquis (Apixaban) 5 Mg Tablet 5 Mg PO BID Latuda (Lurasidone Hcl) 40 Mg Tablet 60 Mg PO DAILY Divalproex Sodium 500 Mg Tablet.dr 1 Tab PO BID Clonazepam 0.5 Mg Tablet 0.5 Mg PO BID Diagnosis: Problems: (1) Impulse control disorder (2) Dementia in Alzheimer's disease with delusions (3) Dementia, vascular, with delusions (4) Anxiety disorder (5) Bipolar affective, mixed, sev w/ psych JUDAH ALEGRIA MD Oct 08, 2016 18:26
[2016-10-08] MEDS: FOLIC ACID 1 MG TABLET PO SCH (19:33)
[2016-10-08] MEDS: SENNOSIDES/DOCUSATE 8.6/50MG TABLET. PO SCH (19:33)
[2016-10-08] MEDS: FUROSEMIDE 20 MG TABLET PO SCH (19:33)
[2016-10-08] MEDS: LITHIUM CARBONATE 300 MG TABLET PO SCH (19:34)
--- NOTE | 2016-10-09 01:47 | PN ---
DATE: 10/08/2016 This late entry 10/07/2016 covers elements not covered in my initial note. SUBJECTIVE: The patient slept 5-1/2 hours previous evening. He has been more interactive and held his head high up during the day per nursing report. He tends to smile, attended some groups. Reportedly, his sister came to visit him, but this was the one he has a contentious relationship with and became extremely agitated repeatedly stating ", , ." REVIEW OF SYSTEMS: Ambulation impaired, in a wheelchair. No CV, , pulmonary, eye, ENT system symptoms on review. Reliability poor. MENTAL STATUS EXAM: Oriented to himself. Insight, judgment, recent and remote memory, attention, concentration, fund of knowledge poor, consistent with his diagnosis. LABORATORY DATA: Reviewed. IMPRESSION: Unchanged from initial note. PLAN: The patient's Depakote was discontinued as the family felt it was making his symptoms, agitation worse. [place] has been adjusted. Repeat labs level on the lithium. Continue BuSpar, Klonopin, lurasidone at current dosage together with trazodone p.r.n. Reviewed drug interactions, risk/benefit ratio favors no further change until we get the lithium therapeutic initially. JUDAH ALEGRIA MD DR: JESÚS/liliane JOB#: [id number] / [id number]
[2016-10-09 05:47] VITALS: BP 108/69
[2016-10-09] MEDS: CHLORHEXIDINE 0.12% 15 ML MOUTHWASH. MM SCH (08:50)
[2016-10-09] MEDS: busPIRone 5 MG TABLET. PO SCH ×3 (08:51→19:21)
[2016-10-09] MEDS: clonazePAM 0.5 MG TABLET PO SCH ×2 (08:51→19:25)
[2016-10-09] MEDS: POTASSIUM CHLORIDE 10 MEQ TABLET.ER. PO SCH (08:51)
[2016-10-09] MEDS: APIXABAN 5 MG TABLET. PO SCH ×2 (08:51→19:20)
[2016-10-09] MEDS: METOPROLOL SUCC 24HR ER 50 MG TAB.ER.24H. PO SCH ×2 (08:52→19:21)
[2016-10-09] MEDS: LOSARTAN 50 MG TABLET. PO SCH (08:52)
[2016-10-09] MEDS: LURASIDONE 40 MG TABLET. PO SCH (08:53)
[2016-10-09 16:07] VITALS: BP 106/69
[2016-10-09] MEDS: FOLIC ACID 1 MG TABLET PO SCH (19:20)
[2016-10-09] MEDS: FUROSEMIDE 20 MG TABLET PO SCH (19:21)
[2016-10-09] MEDS: SENNOSIDES/DOCUSATE 8.6/50MG TABLET. PO SCH (19:21)
[2016-10-09] MEDS: LITHIUM CARBONATE 300 MG TABLET PO SCH (19:23)
--- NOTE | 2016-10-09 20:34 | PDOC ---
Exam Derrell Demential Exam: Derrell Note: Please also refer to the separate dictated note~for this date of service dictated separately.~Patient seen individually. Discussed the patient with Nursing staff reviewed the chart.~Reviewed interim history and current functioning. Reviewed vital signs,~Labs/ Radiology~and current medications noted below. Continue current treatment with the changes noted in the dictated addendum note Assessment: Vital Signs: Vital Signs Date Time Temp Pulse Resp B/P (MAP) Pulse Ox O2 Delivery O2 Flow Rate FiO2 10/09/16 19:21 84 106/69 10/09/16 16:07 98.3 18 98 10/09/16 05:47 Room Air I&O Intake and Output 10/09/16 07:00 Intake Total 1300 ml Balance 1300 ml Intake Oral 1300 ml # Voids 1 Current Medications: Meds: Current Medications Acetaminophen (Tylenol) 650 mg PRN Q6HRS PRN PO PAIN / TEMP Last administered on 10/03/16 12:42; Start 09/29/16 at 23:45 Multi-Ingredient Ointment (Analgesic [place]) 1 charles PRN QID PRN TP MUSCLE PAIN; Start 09/29/16 at 23:45 Al Hydroxide/Mg Hydroxide (Mylanta Plus Xs) 15 ml PRN AFTMEALHC PRN PO DYSPEPSIA; Start 09/29/16 at 23:45 Magnesium Hydroxide (Milk Of Magnesia) 2,400 mg PRN QHS PRN PO CONSTIPATION; Start 09/29/16 at 23:45 Apixaban (Eliquis) 5 mg BID PO Last administered on 10/09/16 19:20; Start at 09:00 Clonazepam (KlonoPIN) 0.5 mg BID PO Last administered on 10/09/16 19:25; Start 09/30/16 at 09:00 Divalproex Sodium (Depakote) 500 mg BID PO Last administered on 10/06/16 08:08 ; Start 09/30/16 at 09:00; Stop 10/06/16 at 18:27; Status DC Chlorhexidine Gluconate (Peridex) 15 ml DAILY MM Last administered on 08:50; Start 09/30/16 at 09:00 Folic Acid (Folic Acid) 1 mg HS PO Last administered on 10/09/16 19:20; Start 09/30/16 at 21:00 Furosemide (Lasix) 20 mg HS PO Last administered on 10/09/16 19:21; Start at 21:00 Losartan Potassium (Cozaar) 50 mg DAILY PO Last administered on 10/09/16 08:52 ; Start 09/30/16 at 09:00 Metoprolol Succinate (Toprol Xl) 50 mg BID PO Last administered on 10/09/16 19 :21; Start 09/30/16 at 09:00 Polyethylene Glycol (miraLAX) 17 gm PRN DAILY PRN PO CONSTIPATION; Start at 00:00 Senna/Docusate Sodium (Senna Plus) 1 tab HS PO Last administered on 10/09/16 19:21; Start 09/30/16 at 21:00 Potassium Chloride (Klor-Con) 10 meq DAILY PO Last administered on 10/09/16 08 :51; Start 09/30/16 at 09:00 Non-Formulary Medication 1 charles PRN DAILY PRN TP RASH; Start 09/30/16 at 00:00; Status UNV Buspirone HCl (Buspar) 5 mg TID PO Last administered on 10/09/16 19:21; Start 10/01/16 at 21:00 Non-Formulary Medication 1 applic PRN DAILY PRN TOP dry face Last administered on 10/03/16 09:24; Start 10/02/16 at 17:30 Non-Formulary Medication 1 charles PRN DAILY PRN TOP dry scalp; Start 10/02/16 at 17:30 [place] Carbonate 300 mg HS PO Last administered on 10/05/16 20:17; Start at 21:00; Stop 10/06/16 at 18:29; Status DC [place] Carbonate 450 mg HS PO Last administered on 10/09/16 19:23; Start at 21:00 Active Scripts Active Reported [sulfatamide lotion] 1 Applic TOP PRN DAILY PRN [triamcinolone shampo] 0.1% Charles 1 Charles TOP PRN DAILY PRN Sulfacetamide-Sulfur 10-5% Crm (Sulfacetamide Sodium/Sulfur) 57 Gm Cream..g. 1 Charles TP PRN DAILY PRN Potassium Chloride 10 Meq Tablet.er 10 Meq PO DAILY Miralax (Polyethylene Glycol 3350) 17 Gm Powd.pack 17 Gm PO PRN DAILY PRN Metoprolol Succinate ( Xl ) (Metoprolol Succinate) 50 Mg Tab.er.24h 50 Mg PO BID Losartan Potassium 50 Mg Tablet 50 Mg PO DAILY Furosemide 20 Mg Tablet 20 Mg PO HS Folic Acid 1 Mg Tablet 1 Mg PO HS Senna-Docusate Sodium Tablet (Sennosides/Docusate Sodium) 1 Each Tablet 1 Each PO HS Peridex (Chlorhexidine Gluconate) 15 Ml Mouthwash 15 Ml MM DAILY Eliquis (Apixaban) 5 Mg Tablet 5 Mg PO BID Latuda (Lurasidone Hcl) 40 Mg Tablet 60 Mg PO DAILY Divalproex Sodium 500 Mg Tablet.dr 1 Tab PO BID Clonazepam 0.5 Mg Tablet 0.5 Mg PO BID Diagnosis: Problems: (1) Bipolar affective, mixed, sev w/ psych (2) Anxiety disorder (3) Dementia, vascular, with delusions (4) Dementia in Alzheimer's disease with delusions (5) Impulse control disorder JUDAH ALEGRIA MD Oct 09, 2016 20:34
--- NOTE | 2016-10-10 00:13 | PN ---
DATE: 10/08/2016 This is a late entry, covers the elements not covered in my initial note of 10/08/2016. SUBJECTIVE: I met with the patient the evening of 10/08/2016. The patient is compliant with his medications, cooperative, smiling at times, yelled when his "less favorite", brother visited him and then did okay after that. His anxiety seems to heighten and this comes out as increased agitation. He walked 40 feet with physical therapy staff with some improvement. REVIEW OF SYSTEMS: Ambulation impaired, in wheelchair. No CV, , pulmonary, eye, ENT system symptoms on review. Reliability poor. MENTAL STATUS EXAM: Oriented to himself. Insight, judgment, recent, and remote memory, attention, concentration, fund of knowledge poor, consistent with his diagnosis as mentioned in my initial note. LABORATORY DATA: Reviewed. IMPRESSION: Unchanged from initial note. PLAN: Continue current psychotropics. We will repeat the lithium level, adjust to reach a therapeutic level since earlier level was 0.2 on 300 mg at bedtime and currently, he is on 450 mg at bedtime. We may consider increasing BuSpar for anxiety. MAN Ty ALEGRIA MD DR: JESÚS/liliane JOB#: [id number] / [id number]
[2016-10-10 04:12] LABS: HEMOGLOBIN A1C 5.1 % (4.8-5.6)
[2016-10-10 05:55] VITALS: BP 107/55
--- NOTE | 2016-10-10 10:07 | PDOC ---
Exam Derrell Demential Exam: Derrell Note: Please also refer to the separate dictated note~for this date of service dictated separately.~Patient seen individually. Discussed the patient with Nursing staff reviewed the chart.~Reviewed interim history and current functioning. Reviewed vital signs,~Labs/ Radiology~and current medications noted below. Continue current treatment with the changes noted in the dictated addendum note Assessment: Vital Signs: Vital Signs Date Time Temp Pulse Resp B/P (MAP) Pulse Ox O2 Delivery O2 Flow Rate FiO2 10/10/16 05:55 98.1 80 18 107/55 (72) 96 10/09/16 05:47 Room Air I&O Intake and Output 10/10/16 06:59 Intake Total 1180 ml Balance 1180 ml Intake Oral 1180 ml # Bowel Movements 1 Current Medications: Meds: Current Medications Acetaminophen (Tylenol) 650 mg PRN Q6HRS PRN PO PAIN / TEMP Last administered on 10/03/16 12:42; Start 09/29/16 at 23:45 Multi-Ingredient Ointment (Analgesic [place]) 1 charles PRN QID PRN TP MUSCLE PAIN; Start 09/29/16 at 23:45 Al Hydroxide/Mg Hydroxide (Mylanta Plus Xs) 15 ml PRN AFTMEALHC PRN PO DYSPEPSIA; Start 09/29/16 at 23:45 Magnesium Hydroxide (Milk Of Magnesia) 2,400 mg PRN QHS PRN PO CONSTIPATION; Start 09/29/16 at 23:45 Apixaban (Eliquis) 5 mg BID PO Last administered on 10/09/16 19:20; Start at 09:00 Clonazepam (KlonoPIN) 0.5 mg BID PO Last administered on 10/09/16 19:25; Start 09/30/16 at 09:00 Divalproex Sodium (Depakote) 500 mg BID PO Last administered on 10/06/16 08:08 ; Start 09/30/16 at 09:00; Stop 10/06/16 at 18:27; Status DC Chlorhexidine Gluconate (Peridex) 15 ml DAILY MM Last administered on 08:50; Start 09/30/16 at 09:00 Folic Acid (Folic Acid) 1 mg HS PO Last administered on 10/09/16 19:20; Start 09/30/16 at 21:00 Furosemide (Lasix) 20 mg HS PO Last administered on 10/09/16 19:21; Start at 21:00 Losartan Potassium (Cozaar) 50 mg DAILY PO Last administered on 10/09/16 08:52 ; Start 09/30/16 at 09:00 Metoprolol Succinate (Toprol Xl) 50 mg BID PO Last administered on 10/09/16 19 :21; Start 09/30/16 at 09:00 Polyethylene Glycol (miraLAX) 17 gm PRN DAILY PRN PO CONSTIPATION; Start at 00:00 Senna/Docusate Sodium (Senna Plus) 1 tab HS PO Last administered on 10/09/16 19:21; Start 09/30/16 at 21:00 Potassium Chloride (Klor-Con) 10 meq DAILY PO Last administered on 10/09/16 08 :51; Start 09/30/16 at 09:00 Non-Formulary Medication 1 charles PRN DAILY PRN TP RASH; Start 09/30/16 at 00:00; Status UNV Buspirone HCl (Buspar) 5 mg TID PO Last administered on 10/09/16 19:21; Start 10/01/16 at 21:00 Non-Formulary Medication 1 applic PRN DAILY PRN TOP dry face Last administered on 10/03/16 09:24; Start 10/02/16 at 17:30 Non-Formulary Medication 1 charles PRN DAILY PRN TOP dry scalp; Start 10/02/16 at 17:30 [place] Carbonate 300 mg HS PO Last administered on 10/05/16 20:17; Start at 21:00; Stop 10/06/16 at 18:29; Status DC [place] Carbonate 450 mg HS PO Last administered on 10/09/16 19:23; Start at 21:00 Active Scripts Active Reported [sulfatamide lotion] 1 Applic TOP PRN DAILY PRN [triamcinolone shampo] 0.1% Charles 1 Charles TOP PRN DAILY PRN Sulfacetamide-Sulfur 10-5% Crm (Sulfacetamide Sodium/Sulfur) 57 Gm Cream..g. 1 Charles TP PRN DAILY PRN Potassium Chloride 10 Meq Tablet.er 10 Meq PO DAILY Miralax (Polyethylene Glycol 3350) 17 Gm Powd.pack 17 Gm PO PRN DAILY PRN Metoprolol Succinate ( Xl ) (Metoprolol Succinate) 50 Mg Tab.er.24h 50 Mg PO BID Losartan Potassium 50 Mg Tablet 50 Mg PO DAILY Furosemide 20 Mg Tablet 20 Mg PO HS Folic Acid 1 Mg Tablet 1 Mg PO HS Senna-Docusate Sodium Tablet (Sennosides/Docusate Sodium) 1 Each Tablet 1 Each PO HS Peridex (Chlorhexidine Gluconate) 15 Ml Mouthwash 15 Ml MM DAILY Eliquis (Apixaban) 5 Mg Tablet 5 Mg PO BID Latuda (Lurasidone Hcl) 40 Mg Tablet 60 Mg PO DAILY Divalproex Sodium 500 Mg Tablet.dr 1 Tab PO BID Clonazepam 0.5 Mg Tablet 0.5 Mg PO BID Diagnosis: Problems: (1) Impulse control disorder (2) Dementia in Alzheimer's disease with delusions (3) Dementia, vascular, with delusions (4) Anxiety disorder (5) Bipolar affective, mixed, sev w/ psych JUDAH ALEGRIA MD Oct 10, 2016 10:07
[2016-10-10] MEDS: busPIRone 5 MG TABLET. PO SCH ×3 (10:18→19:44)
[2016-10-10] MEDS: CHLORHEXIDINE 0.12% 15 ML MOUTHWASH. MM SCH (10:18)
[2016-10-10] MEDS: POTASSIUM CHLORIDE 10 MEQ TABLET.ER. PO SCH (10:19)
[2016-10-10] MEDS: METOPROLOL SUCC 24HR ER 50 MG TAB.ER.24H. PO SCH ×2 (10:19→19:45)
[2016-10-10] MEDS: LOSARTAN 50 MG TABLET. PO SCH (10:19)
[2016-10-10] MEDS: APIXABAN 5 MG TABLET. PO SCH ×2 (10:19→19:44)
[2016-10-10] MEDS: LURASIDONE 40 MG TABLET. PO SCH (10:21)
[2016-10-10] MEDS: clonazePAM 0.5 MG TABLET PO SCH ×2 (10:21→19:47)
[2016-10-10 11:50] LABS: BASO # 0.1 x10^3/uL (0.0-0.2); BASO % 1 % (0-3); EOS # 0.3 x10^3/uL (0.0-0.7); EOS % 4 % (0-3); HEMATOCRIT 36.8 % (39.0-53.0); LYMPH # 0.9 x10^3/uL (1.0-4.8); LYMPH % 13 % (24-48); MEAN CORPUSCULAR HEMOGLOBIN 30 pg (25-35); MEAN CORPUSCULAR HGB CONC 33 g/dL (31-37); MEAN CORPUSCULAR VOLUME 92 fL (79-100); MONO # 0.8 x10^3/uL (0.0-1.1); MONO % 11 % (0-9); NEUT # 5.3 x10^3uL (1.8-7.7); NEUT % 71 % (31-73); PLATELET COUNT 172 x10^3/uL (140-400); RED BLOOD COUNT 4.02 x10^6/uL (4.30-5.70); RED CELL DISTRIBUTION WIDTH 15.3 % (11.5-14.5); WHITE BLOOD COUNT 7.4 x10^3/uL (4.0-11.0)
[2016-10-10 11:58] LABS: ALBUMIN 3.7 g/dL (3.4-5.0); CALCIUM 9.9 mg/dL (8.5-10.1); CREATININE 1.4 mg/dL (0.7-1.3); GFR 51.4; POTASSIUM 4.2 mmol/L (3.5-5.1); TOTAL BILIRUBIN 0.5 mg/dL (0.2-1.0); TOTAL PROTEIN 7.4 g/dL (6.4-8.2)
[2016-10-10 13:30] LABS: LI 0.5 mmol/L (0.6-1.2)
[2016-10-10 15:50] VITALS: BP 107/63
--- NOTE | 2016-10-10 18:20 | PN ---
DATE: 10/09/2016 This note covers elements not covered in my initial note of 10/09/2016. SUBJECTIVE: The patient was staffed a treatment team meeting with the entire team morning of 10/09/2016, and the patient sister's Ryanne and Josy attended the conference. We had a lengthy discussion about the patient's history, diagnosis, current psychotropics, progress. He gets quite agitated, labile, aggressive, disruptive, especially when he is more anxious and certain family members visit increasing his anxiety. Sister shared how symptoms had worsened since 08/03/2016 and he has been placed in a new residential, which worsened anxiety, agitation. He has been compliant with medications care, sleeping about 6-1/2 to 7-1/2 hours. Discussed his diagnosis, medications, answered many questions at the entire treatment team meeting. REVIEW OF SYSTEMS: Ambulation impaired, in a wheelchair. No CV, , pulmonary, eye, ENT system symptoms on review. MENTAL STATUS EXAM: Oriented to himself. Insight, judgment, recent and remote memory, attention, concentration, fund of knowledge poor, consistent with his diagnosis mentioned in my initial note. PLAN: Continue current psychotropics, repeat lithium levels since being adjusted the lithium to 450 mg p.o. at bedtime. Depakote was stopped. Make further adjustments as clinically indicated. I have carefully reviewed all his psychotropics and drug interactions. Risk/benefit ratio favors no further change as of now. MAN Ty ALEGRIA MD DR: JESÚS/liliane JOB#: [id number] / [id number]
[2016-10-10] MEDS: SENNOSIDES/DOCUSATE 8.6/50MG TABLET. PO SCH (19:43)
[2016-10-10] MEDS: FUROSEMIDE 20 MG TABLET PO SCH (19:44)
[2016-10-10] MEDS: LITHIUM CARBONATE 300 MG TABLET PO SCH (19:44)
[2016-10-10] MEDS: FOLIC ACID 1 MG TABLET PO SCH (19:44)
--- NOTE | 2016-10-10 19:45 | PDOC ---
Exam Derrell Demential Exam: Derrell Note: Please also refer to the separate dictated note~for this date of service dictated separately.~Patient seen individually. Discussed the patient with Nursing staff reviewed the chart.~Reviewed interim history and current functioning. Reviewed vital signs,~Labs/ Radiology~and current medications noted below. Continue current treatment with the changes noted in the dictated addendum note Assessment: Vital Signs: Vital Signs Date Time Temp Pulse Resp B/P (MAP) Pulse Ox O2 Delivery O2 Flow Rate FiO2 10/10/16 15:50 98.3 94 19 107/63 (78) 98 10/09/16 05:47 Room Air I&O Intake and Output 10/10/16 06:59 Intake Total 1180 ml Balance 1180 ml Intake Oral 1180 ml # Bowel Movements 1 Labs: Laboratory Tests Test 10/10/16 11:29 White Blood Count 7.4 x10^3/uL (4.0-11.0) Red Blood Count 4.02 x10^6/uL (4.30-5.70) L Hemoglobin 12.0 g/dL (13.0-17.5) L Hematocrit 36.8 % (39.0-53.0) L Mean Corpuscular Volume 92 fL (79-100) Mean Corpuscular Hemoglobin 30 pg (25-35) Mean Corpuscular Hemoglobin Concent 33 g/dL (31-37) Red Cell Distribution Width 15.3 % (11.5-14.5) H Platelet Count 172 x10^3/uL (140-400) Neutrophils (%) (Auto) 71 % (31-73) Lymphocytes (%) (Auto) 13 % (24-48) L Monocytes (%) (Auto) 11 % (0-9) H Eosinophils (%) (Auto) 4 % (0-3) H Basophils (%) (Auto) 1 % (0-3) Neutrophils # (Auto) 5.3 x10^3uL (1.8-7.7) Lymphocytes # (Auto) 0.9 x10^3/uL (1.0-4.8) L Monocytes # (Auto) 0.8 x10^3/uL (0.0-1.1) Eosinophils # (Auto) 0.3 x10^3/uL (0.0-0.7) Basophils # (Auto) 0.1 x10^3/uL (0.0-0.2) Sodium Level 143 mmol/L (136-145) Potassium Level 4.2 mmol/L (3.5-5.1) Chloride Level 106 mmol/L (98-107) Carbon Dioxide Level 34 mmol/L (21-32) H Anion Gap 3 (6-14) L Blood Urea Nitrogen 18 mg/dL (8-26) Creatinine 1.4 mg/dL (0.7-1.3) H Estimated GFR (Cockcroft-Gault) 51.4 BUN/Creatinine Ratio 13 (6-20) Glucose Level 121 mg/dL (70-99) H Calcium Level 9.9 mg/dL (8.5-10.1) Total Bilirubin 0.5 mg/dL (0.2-1.0) Aspartate Amino Transferase (AST) 25 U/L (15-37) Alanine Aminotransferase (ALT) 20 U/L (16-63) Alkaline Phosphatase 67 U/L (46-116) Total Protein 7.4 g/dL (6.4-8.2) Albumin 3.7 g/dL (3.4-5.0) Albumin/Globulin Ratio 1.0 (1.0-1.7) [place] Level 0.5 mmol/L (0.6-1.2) L [place] Last Dose Date 10/09/16 [place] Last Dose Time 2100 Current Medications: Meds: Current Medications Acetaminophen (Tylenol) 650 mg PRN Q6HRS PRN PO PAIN / TEMP Last administered on 10/03/16 12:42; Start 09/29/16 at 23:45 Multi-Ingredient Ointment (Analgesic [place]) 1 charles PRN QID PRN TP MUSCLE PAIN; Start 09/29/16 at 23:45 Al Hydroxide/Mg Hydroxide (Mylanta Plus Xs) 15 ml PRN AFTMEALHC PRN PO DYSPEPSIA; Start 09/29/16 at 23:45 Magnesium Hydroxide (Milk Of Magnesia) 2,400 mg PRN QHS PRN PO CONSTIPATION; Start 09/29/16 at 23:45 Apixaban (Eliquis) 5 mg BID PO Last administered on 10/10/16 10:19; Start at 09:00 Clonazepam (KlonoPIN) 0.5 mg BID PO Last administered on 10/10/16 10:21; Start 09/30/16 at 09:00 Divalproex Sodium (Depakote) 500 mg BID PO Last administered on 10/06/16 08:08 ; Start 09/30/16 at 09:00; Stop 10/06/16 at 18:27; Status DC Chlorhexidine Gluconate (Peridex) 15 ml DAILY MM Last administered on 10:18; Start 09/30/16 at 09:00 Folic Acid (Folic Acid) 1 mg HS PO Last administered on 10/09/16 19:20; Start 09/30/16 at 21:00 Furosemide (Lasix) 20 mg HS PO Last administered on 10/09/16 19:21; Start at 21:00 Losartan Potassium (Cozaar) 50 mg DAILY PO Last administered on 10/10/16 10:19 ; Start 09/30/16 at 09:00 Metoprolol Succinate (Toprol Xl) 50 mg BID PO Last administered on 10/10/16 10 :19; Start 09/30/16 at 09:00 Polyethylene Glycol (miraLAX) 17 gm PRN DAILY PRN PO CONSTIPATION; Start at 00:00 Senna/Docusate Sodium (Senna Plus) 1 tab HS PO Last administered on 10/09/16 19:21; Start 09/30/16 at 21:00 Potassium Chloride (Klor-Con) 10 meq DAILY PO Last administered on 10/10/16 10 :19; Start 09/30/16 at 09:00 Non-Formulary Medication 1 charles PRN DAILY PRN TP RASH; Start 09/30/16 at 00:00; Status UNV Buspirone HCl (Buspar) 5 mg TID PO Last administered on 10/10/16 14:01; Start 10/01/16 at 21:00 Non-Formulary Medication 1 applic PRN DAILY PRN TOP dry face Last administered on 10/03/16 09:24; Start 10/02/16 at 17:30 Non-Formulary Medication 1 charles PRN DAILY PRN TOP dry scalp; Start 10/02/16 at 17:30 [place] Carbonate 300 mg HS PO Last administered on 10/05/16 20:17; Start at 21:00; Stop 10/06/16 at 18:29; Status DC [place] Carbonate 450 mg HS PO Last administered on 10/09/16t 19:23; Start at 21:00 Active Scripts Active Reported [sulfatamide lotion] 1 Applic TOP PRN DAILY PRN [triamcinolone shampo] 0.1% Charles 1 Charles TOP PRN DAILY PRN Sulfacetamide-Sulfur 10-5% Crm (Sulfacetamide Sodium/Sulfur) 57 Gm Cream..g. 1 Charles TP PRN DAILY PRN Potassium Chloride 10 Meq Tablet.er 10 Meq PO DAILY Miralax (Polyethylene Glycol 3350) 17 Gm Powd.pack 17 Gm PO PRN DAILY PRN Metoprolol Succinate ( Xl ) (Metoprolol Succinate) 50 Mg Tab.er.24h 50 Mg PO BID Losartan Potassium 50 Mg Tablet 50 Mg PO DAILY Furosemide 20 Mg Tablet 20 Mg PO HS Folic Acid 1 Mg Tablet 1 Mg PO HS Senna-Docusate Sodium Tablet (Sennosides/Docusate Sodium) 1 Each Tablet 1 Each PO HS Peridex (Chlorhexidine Gluconate) 15 Ml Mouthwash 15 Ml MM DAILY Eliquis (Apixaban) 5 Mg Tablet 5 Mg PO BID Latuda (Lurasidone Hcl) 40 Mg Tablet 60 Mg PO DAILY Divalproex Sodium 500 Mg Tablet. 1 Tab PO BID Clonazepam 0.5 Mg Tablet 0.5 Mg PO BID Diagnosis: Problems: (1) Bipolar affective, mixed, sev w/ psych (2) Anxiety disorder (3) Dementia, vascular, with delusions (4) Dementia in Alzheimer's disease with delusions (5) Impulse control disorder JUDAH ALEGRIA MD Oct 10, 2016 19:44
[2016-10-11 05:57] VITALS: BP 113/66
[2016-10-11] MEDS: clonazePAM 0.5 MG TABLET PO SCH ×2 (08:45→20:10)
[2016-10-11] MEDS: busPIRone 5 MG TABLET. PO SCH ×3 (08:45→20:10)
[2016-10-11] MEDS: APIXABAN 5 MG TABLET. PO SCH ×2 (08:45→20:12)
[2016-10-11] MEDS: METOPROLOL SUCC 24HR ER 50 MG TAB.ER.24H. PO SCH ×2 (08:46→20:10)
[2016-10-11] MEDS: CHLORHEXIDINE 0.12% 15 ML MOUTHWASH. MM SCH (08:46)
[2016-10-11] MEDS: POTASSIUM CHLORIDE 10 MEQ TABLET.ER. PO SCH (08:46)
[2016-10-11] MEDS: LOSARTAN 50 MG TABLET. PO SCH (08:51)
[2016-10-11] MEDS: LURASIDONE 40 MG TABLET. PO SCH (08:51)
[2016-10-11 15:30] VITALS: BP 127/75
[2016-10-11] MEDS: LITHIUM CARBONATE 300 MG TABLET PO SCH (20:10)
[2016-10-11] MEDS: FOLIC ACID 1 MG TABLET PO SCH (20:10)
[2016-10-11] MEDS: FUROSEMIDE 20 MG TABLET PO SCH (20:10)
[2016-10-11] MEDS: SENNOSIDES/DOCUSATE 8.6/50MG TABLET. PO SCH (20:10)
--- NOTE | 2016-10-12 04:02 | PN ---
DATE: 10/10/2016 PSYCHIATRIC PROGRESS NOTE This note covers the elements not covered in my initial note of 10/10/2016. The patient was seen individually on the morning of 10/10/2016. ____. The patient has been cooperative with care, med compliant and pleasant. No yelling or aggression noted. However, he gets quite anxious and this makes his irritability, mood liability worse. REVIEW OF SYSTEMS: Ambulation impaired. No CV, , pulmonary, eye system symptoms on review. Reliability poor. MENTAL STATUS EXAM: Oriented to himself. Insight, judgment, recent and remote memory, attention, concentration, fund of knowledge poor, consistent with his diagnosis mentioned in my initial note. PLAN: Continue current psychotropics. Repeat lithium level is awaited. We will make further adjustments to reach the therapeutic level on the lithium. Reviewed drug interactions. Risk/benefit ratio favors no further change. JUDAH ALEGRIA MD DR: JESÚS/liliane JOB#: [id number] / [id number]
[2016-10-12 06:30] VITALS: BP 117/68
[2016-10-12] MEDS: LURASIDONE 40 MG TABLET. PO SCH (07:55)
[2016-10-12] MEDS: busPIRone 5 MG TABLET. PO SCH ×3 (07:56→20:32)
[2016-10-12] MEDS: POTASSIUM CHLORIDE 10 MEQ TABLET.ER. PO SCH (07:56)
[2016-10-12] MEDS: CHLORHEXIDINE 0.12% 15 ML MOUTHWASH. MM SCH (07:57)
[2016-10-12] MEDS: LOSARTAN 50 MG TABLET. PO SCH (07:57)
[2016-10-12] MEDS: APIXABAN 5 MG TABLET. PO SCH ×2 (07:57→20:34)
[2016-10-12] MEDS: METOPROLOL SUCC 24HR ER 50 MG TAB.ER.24H. PO SCH ×2 (07:57→20:33)
[2016-10-12] MEDS: clonazePAM 0.5 MG TABLET PO SCH ×2 (08:00→20:32)
[2016-10-12 16:36] VITALS: BP 134/62
--- NOTE | 2016-10-12 19:35 | PDOC ---
Exam Derrell Demential Exam: Derrell Note: Please also refer to the separate dictated note~for this date of service dictated separately.~Patient seen individually. Discussed the patient with Nursing staff reviewed the chart.~Reviewed interim history and current functioning. Reviewed vital signs,~Labs/ Radiology~and current medications noted below. Continue current treatment with the changes noted in the dictated addendum note Assessment: Vital Signs: Vital Signs Date Time Temp Pulse Resp B/P (MAP) Pulse Ox O2 Delivery O2 Flow Rate FiO2 10/12/16 16:36 98.7 103 18 134/62 (86) 94 10/11/16 15:30 Room Air I&O Intake and Output 10/12/16 06:59 Intake Total 1200 ml Balance 1200 ml Intake Oral 1200 ml Current Medications: Meds: Current Medications Acetaminophen (Tylenol) 650 mg PRN Q6HRS PRN PO PAIN / TEMP Last administered on 10/03/16 12:42; Start 09/29/16 at 23:45 Multi-Ingredient Ointment (Analgesic [place]) 1 charles PRN QID PRN TP MUSCLE PAIN; Start 09/29/16 at 23:45 Al Hydroxide/Mg Hydroxide (Mylanta Plus Xs) 15 ml PRN AFTMEALHC PRN PO DYSPEPSIA; Start 09/29/16 at 23:45 Magnesium Hydroxide (Milk Of Magnesia) 2,400 mg PRN QHS PRN PO CONSTIPATION; Start 09/29/16 at 23:45 Apixaban (Eliquis) 5 mg BID PO Last administered on 10/12/16 07:57; Start at 09:00 Clonazepam (KlonoPIN) 0.5 mg BID PO Last administered on 10/12/16 08:00; Start 09/30/16 at 09:00 Divalproex Sodium (Depakote) 500 mg BID PO Last administered on 10/06/16 08:08 ; Start 09/30/16 at 09:00; Stop 10/06/16 at 18:27; Status DC Chlorhexidine Gluconate (Peridex) 15 ml DAILY MM Last administered on 07:57; Start 09/30/16 at 09:00 Folic Acid (Folic Acid) 1 mg HS PO Last administered on 10/11/16 20:10; Start 09/30/16 at 21:00 Furosemide (Lasix) 20 mg HS PO Last administered on 10/11/16 20:10; Start at 21:00 Losartan Potassium (Cozaar) 50 mg DAILY PO Last administered on 10/12/16 07:57 ; Start 09/30/16 at 09:00 Metoprolol Succinate (Toprol Xl) 50 mg BID PO Last administered on 10/12/16 07 :57; Start 09/30/16 at 09:00 Polyethylene Glycol (miraLAX) 17 gm PRN DAILY PRN PO CONSTIPATION; Start at 00:00 Senna/Docusate Sodium (Senna Plus) 1 tab HS PO Last administered on 10/11/16 20:10; Start 09/30/16 at 21:00 Potassium Chloride (Klor-Con) 10 meq DAILY PO Last administered on 10/12/16 07 :56; Start 09/30/16 at 09:00 Non-Formulary Medication 1 charles PRN DAILY PRN TP RASH; Start 09/30/16 at 00:00; Status UNV Buspirone HCl (Buspar) 5 mg TID PO Last administered on 10/12/16 13:35; Start 10/01/16 at 21:00 Non-Formulary Medication 1 applic PRN DAILY PRN TOP dry face Last administered on 10/03/16 09:24; Start 10/02/16 at 17:30 Non-Formulary Medication 1 charles PRN DAILY PRN TOP dry scalp; Start 10/02/16 at 17:30 [place] Carbonate 300 mg HS PO Last administered on 10/05/16 20:17; Start at 21:00; Stop 10/06/16 at 18:29; Status DC [place] Carbonate 450 mg HS PO Last administered on 10/11/16 20:10; Start at 21:00 Active Scripts Active Reported [sulfatamide lotion] 1 Applic TOP PRN DAILY PRN [triamcinolone shampo] 0.1% Charles 1 Charles TOP PRN DAILY PRN Sulfacetamide-Sulfur 10-5% Crm (Sulfacetamide Sodium/Sulfur) 57 Gm Cream..g. 1 Charles TP PRN DAILY PRN Potassium Chloride 10 Meq Tablet.er 10 Meq PO DAILY Miralax (Polyethylene Glycol 3350) 17 Gm Powd.pack 17 Gm PO PRN DAILY PRN Metoprolol Succinate ( Xl ) (Metoprolol Succinate) 50 Mg Tab.er.24h 50 Mg PO BID Losartan Potassium 50 Mg Tablet 50 Mg PO DAILY Furosemide 20 Mg Tablet 20 Mg PO HS Folic Acid 1 Mg Tablet 1 Mg PO HS Senna-Docusate Sodium Tablet (Sennosides/Docusate Sodium) 1 Each Tablet 1 Each PO HS Peridex (Chlorhexidine Gluconate) 15 Ml Mouthwash 15 Ml MM DAILY Eliquis (Apixaban) 5 Mg Tablet 5 Mg PO BID Latuda (Lurasidone Hcl) 40 Mg Tablet 60 Mg PO DAILY Divalproex Sodium 500 Mg Tablet.dr 1 Tab PO BID Clonazepam 0.5 Mg Tablet 0.5 Mg PO BID Diagnosis: Problems: (1) Bipolar affective, mixed, sev w/ psych (2) Anxiety disorder (3) Dementia, vascular, with delusions (4) Dementia in Alzheimer's disease with delusions (5) Impulse control disorder JUDAH ALEGRIA MD Oct 12, 2016 19:35
[2016-10-12] MEDS: LITHIUM CARBONATE 300 MG TABLET PO SCH (20:32)
[2016-10-12] MEDS: FUROSEMIDE 20 MG TABLET PO SCH (20:32)
[2016-10-12] MEDS: FOLIC ACID 1 MG TABLET PO SCH (20:32)
[2016-10-12] MEDS: SENNOSIDES/DOCUSATE 8.6/50MG TABLET. PO SCH (20:33)
[2016-10-13 05:55] VITALS: BP 158/50
[2016-10-13] MEDS: busPIRone 5 MG TABLET. PO SCH ×3 (08:23→19:44)
[2016-10-13] MEDS: APIXABAN 5 MG TABLET. PO SCH ×2 (08:24→19:44)
[2016-10-13] MEDS: METOPROLOL SUCC 24HR ER 50 MG TAB.ER.24H. PO SCH ×2 (08:24→19:49)
[2016-10-13] MEDS: clonazePAM 0.5 MG TABLET PO SCH ×2 (08:24→19:45)
[2016-10-13] MEDS: LURASIDONE 40 MG TABLET. PO SCH (08:24)
[2016-10-13] MEDS: POTASSIUM CHLORIDE 10 MEQ TABLET.ER. PO SCH (08:25)
[2016-10-13] MEDS: LOSARTAN 50 MG TABLET. PO SCH (08:25)
[2016-10-13] MEDS: CHLORHEXIDINE 0.12% 15 ML MOUTHWASH. MM SCH (08:25)
[2016-10-13 15:45] VITALS: BP 96/61
[2016-10-13] MEDS: LITHIUM CARBONATE 300 MG TABLET PO SCH (19:44)
[2016-10-13] MEDS: SENNOSIDES/DOCUSATE 8.6/50MG TABLET. PO SCH (19:44)
[2016-10-13] MEDS: FUROSEMIDE 20 MG TABLET PO SCH (19:44)
[2016-10-13] MEDS: FOLIC ACID 1 MG TABLET PO SCH (19:44)
--- NOTE | 2016-10-13 19:44 | PDOC ---
Exam Derrell Demential Exam: Derrell Note: Please also refer to the separate dictated note~for this date of service dictated separately.~Patient seen individually. Discussed the patient with Nursing staff reviewed the chart.~Reviewed interim history and current functioning. Reviewed vital signs,~Labs/ Radiology~and current medications noted below. Continue current treatment with the changes noted in the dictated addendum note Assessment: Vital Signs: Vital Signs Date Time Temp Pulse Resp B/P (MAP) Pulse Ox O2 Delivery O2 Flow Rate FiO2 10/13/16 15:45 98.5 66 20 96/61 (73) 94 10/11/16 15:30 Room Air I&O Intake and Output 10/13/16 07:00 Intake Total 1400 ml Balance 1400 ml Intake Oral 1400 ml # Voids 2 Current Medications: Meds: Current Medications Acetaminophen (Tylenol) 650 mg PRN Q6HRS PRN PO PAIN / TEMP Last administered on 10/03/16 12:42; Start 09/29/16 at 23:45 Multi-Ingredient Ointment (Analgesic [place]) 1 charles PRN QID PRN TP MUSCLE PAIN; Start 09/29/16 at 23:45 Al Hydroxide/Mg Hydroxide (Mylanta Plus Xs) 15 ml PRN AFTMEALHC PRN PO DYSPEPSIA; Start 09/29/16 at 23:45 Magnesium Hydroxide (Milk Of Magnesia) 2,400 mg PRN QHS PRN PO CONSTIPATION; Start 09/29/16 at 23:45 Apixaban (Eliquis) 5 mg BID PO Last administered on 10/13/16 08:24; Start at 09:00 Clonazepam (KlonoPIN) 0.5 mg BID PO Last administered on 10/13/16 08:24; Start 09/30/16 at 09:00 Divalproex Sodium (Depakote) 500 mg BID PO Last administered on 10/06/16 08:08 ; Start 09/30/16 at 09:00; Stop 10/06/16 at 18:27; Status DC Chlorhexidine Gluconate (Peridex) 15 ml DAILY MM Last administered on 08:25; Start 09/30/16 at 09:00 Folic Acid (Folic Acid) 1 mg HS PO Last administered on 10/12/16 20:32; Start 09/30/16 at 21:00 Furosemide (Lasix) 20 mg HS PO Last administered on 10/12/16 20:32; Start at 21:00 Losartan Potassium (Cozaar) 50 mg DAILY PO Last administered on 10/13/16 08:25 ; Start 09/30/16 at 09:00 Metoprolol Succinate (Toprol Xl) 50 mg BID PO Last administered on 10/13/16 08 :24; Start 09/30/16 at 09:00 Polyethylene Glycol (miraLAX) 17 gm PRN DAILY PRN PO CONSTIPATION; Start at 00:00 Senna/Docusate Sodium (Senna Plus) 1 tab HS PO Last administered on 10/12/16 20:33; Start 09/30/16 at 21:00 Potassium Chloride (Klor-Con) 10 meq DAILY PO Last administered on 10/13/16 08 :25; Start 09/30/16 at 09:00 Non-Formulary Medication 1 charles PRN DAILY PRN TP RASH; Start 09/30/16 at 00:00; Status UNV Buspirone HCl (Buspar) 5 mg TID PO Last administered on 10/13/16 14:50; Start 10/01/16 at 21:00 Non-Formulary Medication 1 applic PRN DAILY PRN TOP dry face Last administered on 10/03/16 09:24; Start 10/02/16 at 17:30 Non-Formulary Medication 1 charles PRN DAILY PRN TOP dry scalp; Start 10/02/16 at 17:30 [place] Carbonate 300 mg HS PO Last administered on 10/05/16 20:17; Start at 21:00; Stop 10/06/16 at 18:29; Status DC [place] Carbonate 450 mg HS PO Last administered on 10/12/16 20:32; Start at 21:00 Trazodone HCl (Desyrel) 50 mg QHS PO ; Start 10/13/16 at 21:00 Active Scripts Active Reported [sulfatamide lotion] 1 Applic TOP PRN DAILY PRN [triamcinolone shampo] 0.1% Charles 1 Charles TOP PRN DAILY PRN Sulfacetamide-Sulfur 10-5% Crm (Sulfacetamide Sodium/Sulfur) 57 Gm Cream..g. 1 Charles TP PRN DAILY PRN Potassium Chloride 10 Meq Tablet.er 10 Meq PO DAILY Miralax (Polyethylene Glycol 3350) 17 Gm Powd.pack 17 Gm PO PRN DAILY PRN Metoprolol Succinate ( Xl ) (Metoprolol Succinate) 50 Mg Tab.er.24h 50 Mg PO BID Losartan Potassium 50 Mg Tablet 50 Mg PO DAILY Furosemide 20 Mg Tablet 20 Mg PO HS Folic Acid 1 Mg Tablet 1 Mg PO HS Senna-Docusate Sodium Tablet (Sennosides/Docusate Sodium) 1 Each Tablet 1 Each PO HS Peridex (Chlorhexidine Gluconate) 15 Ml Mouthwash 15 Ml MM DAILY Eliquis (Apixaban) 5 Mg Tablet 5 Mg PO BID Latuda (Lurasidone Hcl) 40 Mg Tablet 60 Mg PO DAILY Divalproex Sodium 500 Mg Tablet.dr 1 Tab PO BID Clonazepam 0.5 Mg Tablet 0.5 Mg PO BID Diagnosis: Problems: (1) Bipolar affective, mixed, sev w/ psych (2) Anxiety disorder (3) Dementia, vascular, with delusions (4) Dementia in Alzheimer's disease with delusions JUDAH ALEGRIA MD Oct 13, 2016 19:44
[2016-10-13] MEDS: traZODone 50 MG TABLET. PO SCH (19:48)
--- NOTE | 2016-10-14 08:05 | PN ---
DATE: 10/12/2016 PSYCHIATRIC PROGRESS NOTE This is a late entry for 10/12/2016, covers elements not covered in my initial note of 10/12/2016. SUBJECTIVE: The patient was seen on rounds the evening of 10/12/2016. Overall, the patient has been less labile, less agitated. Last lithium level was 0.5 on 10/10/2016. REVIEW OF SYSTEMS: Ambulation impaired, in a wheelchair. No CV, , pulmonary, eye system symptoms on review. MENTAL STATUS EXAM: Oriented to himself. Insight, judgment, recent and remote memory, attention, concentration, fund of knowledge poor, consistent with his diagnosis. LABORATORY DATA: Reviewed. IMPRESSION: Unchanged from initial note. PLAN: Continue current psychotropics. We will check another lithium level on 10/14/2016. Reviewed drug interactions. Risk/benefit ratio favors no further changes at this time. MAN Ty ALEGRIA MD DR: JESÚS/liliane JOB#: [id number] / [id number]
[2016-10-14] MEDS: METOPROLOL SUCC 24HR ER 50 MG TAB.ER.24H. PO SCH ×2 (09:46→19:23)
[2016-10-14] MEDS: LOSARTAN 50 MG TABLET. PO SCH (09:46)
[2016-10-14] MEDS: APIXABAN 5 MG TABLET. PO SCH ×2 (09:46→19:22)
[2016-10-14] MEDS: busPIRone 5 MG TABLET. PO SCH ×3 (09:47→19:22)
[2016-10-14] MEDS: POTASSIUM CHLORIDE 10 MEQ TABLET.ER. PO SCH (09:47)
[2016-10-14] MEDS: CHLORHEXIDINE 0.12% 15 ML MOUTHWASH. MM SCH (09:51)
[2016-10-14] MEDS: clonazePAM 0.5 MG TABLET PO SCH ×2 (09:51→19:22)
[2016-10-14] MEDS: LURASIDONE 40 MG TABLET. PO SCH (09:52)
[2016-10-14 13:37] LABS: LI 0.7 mmol/L (0.6-1.2)
[2016-10-14 15:46] VITALS: BP 132/76
[2016-10-14] MEDS: traZODone 50 MG TABLET. PO SCH (19:21)
[2016-10-14] MEDS: FUROSEMIDE 20 MG TABLET PO SCH (19:21)
[2016-10-14] MEDS: LITHIUM CARBONATE 300 MG TABLET PO SCH (19:22)
[2016-10-14] MEDS: FOLIC ACID 1 MG TABLET PO SCH (19:22)
[2016-10-14] MEDS: SENNOSIDES/DOCUSATE 8.6/50MG TABLET. PO SCH (19:22)
--- NOTE | 2016-10-14 19:43 | PDOC ---
Exam Derrell Demential Exam: Derrell Note: Please also refer to the separate dictated note~for this date of service dictated separately.~Patient seen individually. Discussed the patient with Nursing staff reviewed the chart.~Reviewed interim history and current functioning. Reviewed vital signs,~Labs/ Radiology~and current medications noted below. Continue current treatment with the changes noted in the dictated addendum note Assessment: Vital Signs: Vital Signs Date Time Temp Pulse Resp B/P (MAP) Pulse Ox O2 Delivery O2 Flow Rate FiO2 10/14/16 19:23 78 132/76 10/14/16 15:46 98.5 19 100 10/11/16 15:30 Room Air I&O Intake and Output 10/15/16 07:00 Intake Total 840 ml Balance 840 ml Intake Oral 840 ml Labs: Laboratory Tests Test 10/14/16 06:30 [place] Level 0.7 mmol/L (0.6-1.2) [place] Last Dose Date 10/13/16 [place] Last Dose Time 2100 Current Medications: Meds: Current Medications Acetaminophen (Tylenol) 650 mg PRN Q6HRS PRN PO PAIN / TEMP Last administered on 10/03/16 12:42; Start 09/29/16 at 23:45 Multi-Ingredient Ointment (Analgesic [place]) 1 charles PRN QID PRN TP MUSCLE PAIN; Start 09/29/16 at 23:45 Al Hydroxide/Mg Hydroxide (Mylanta Plus Xs) 15 ml PRN AFTMEALHC PRN PO DYSPEPSIA; Start 09/29/16 at 23:45 Magnesium Hydroxide (Milk Of Magnesia) 2,400 mg PRN QHS PRN PO CONSTIPATION; Start 09/29/16 at 23:45 Apixaban (Eliquis) 5 mg BID PO Last administered on 10/14/16 19:22; Start at 09:00 Clonazepam (KlonoPIN) 0.5 mg BID PO Last administered on 10/14/16 19:22; Start 09/30/16 at 09:00 Divalproex Sodium (Depakote) 500 mg BID PO Last administered on 10/06/16 08:08 ; Start 09/30/16 at 09:00; Stop 10/06/16 at 18:27; Status DC Chlorhexidine Gluconate (Peridex) 15 ml DAILY MM Last administered on 09:51; Start 09/30/16 at 09:00 Folic Acid (Folic Acid) 1 mg HS PO Last administered on 10/14/16 19:22; Start 09/30/16 at 21:00 Furosemide (Lasix) 20 mg HS PO Last administered on 10/14/16 19:21; Start at 21:00 Losartan Potassium (Cozaar) 50 mg DAILY PO Last administered on 10/14/16 09:46 ; Start 09/30/16 at 09:00 Metoprolol Succinate (Toprol Xl) 50 mg BID PO Last administered on 10/14/16 19 :23; Start 09/30/16 at 09:00 Polyethylene Glycol (miraLAX) 17 gm PRN DAILY PRN PO CONSTIPATION; Start at 00:00 Senna/Docusate Sodium (Senna Plus) 1 tab HS PO Last administered on 10/14/16 19:22; Start 09/30/16 at 21:00 Potassium Chloride (Klor-Con) 10 meq DAILY PO Last administered on 10/14/16 09 :47; Start 09/30/16 at 09:00 Non-Formulary Medication 1 charles PRN DAILY PRN TP RASH; Start 09/30/16 at 00:00; Status UNV Buspirone HCl (Buspar) 5 mg TID PO Last administered on 10/14/16 19:22; Start 10/01/16 at 21:00 Non-Formulary Medication 1 applic PRN DAILY PRN TOP dry face Last administered on 10/03/16 09:24; Start 10/02/16 at 17:30 Non-Formulary Medication 1 charles PRN DAILY PRN TOP dry scalp; Start 10/02/16 at 17:30 [place] Carbonate 300 mg HS PO Last administered on 10/05/16 20:17; Start at 21:00; Stop 10/06/16 at 18:29; Status DC [place] Carbonate 450 mg HS PO Last administered on 10/14/16 19:22; Start at 21:00 Trazodone HCl (Desyrel) 50 mg QHS PO Last administered on 10/14/16 19:21; Start 10/13/16 at 21:00 Active Scripts Active Reported [sulfatamide lotion] 1 Applic TOP PRN DAILY PRN [triamcinolone shampo] 0.1% Charles 1 Charles TOP PRN DAILY PRN Sulfacetamide-Sulfur 10-5% Crm (Sulfacetamide Sodium/Sulfur) 57 Gm Cream..g. 1 Charles TP PRN DAILY PRN Potassium Chloride 10 Meq Tablet.er 10 Meq PO DAILY Miralax (Polyethylene Glycol 3350) 17 Gm Powd.pack 17 Gm PO PRN DAILY PRN Metoprolol Succinate ( Xl ) (Metoprolol Succinate) 50 Mg Tab.er.24h 50 Mg PO BID Losartan Potassium 50 Mg Tablet 50 Mg PO DAILY Furosemide 20 Mg Tablet 20 Mg PO HS Folic Acid 1 Mg Tablet 1 Mg PO HS Senna-Docusate Sodium Tablet (Sennosides/Docusate Sodium) 1 Each Tablet 1 Each PO HS Peridex (Chlorhexidine Gluconate) 15 Ml Mouthwash 15 Ml MM DAILY Eliquis (Apixaban) 5 Mg Tablet 5 Mg PO BID Latuda (Lurasidone Hcl) 40 Mg Tablet 60 Mg PO DAILY Divalproex Sodium 500 Mg Tablet.dr 1 Tab PO BID Clonazepam 0.5 Mg Tablet 0.5 Mg PO BID Diagnosis: Problems: (1) Bipolar affective, mixed, sev w/ psych (2) Anxiety disorder (3) Dementia, vascular, with delusions (4) Dementia in Alzheimer's disease with delusions (5) Impulse control disorder JUDAH ALEGRIA MD Oct 14, 2016 19:43
--- NOTE | 2016-10-15 01:31 | PN ---
DATE: 10/13/2016 PSYCHIATRIC PROGRESS NOTE This is a late entry for 10/13/2016, covers elements not covered in my initial note of 10/13/2016. SUBJECTIVE: The patient was seen individually the evening of 10/13/2016. The patient is doing better, but was agitated after his brother visited. [place] level is 0.7. REVIEW OF SYSTEMS: Ambulation impaired. No CV, , pulmonary, eye, ENT system symptoms on review. Reliability poor. MENTAL STATUS EXAM: Oriented to himself. Insight, judgment, recent and remote memory, attention, concentration, fund of knowledge poor, consistent with his diagnosis mentioned in my initial note. PLAN: Continue current psychotropics as mentioned in my initial note. [place] level is therapeutic. Adjust further as clinically indicated. Reviewed drug interactions. Risk/benefit ratio favors no further change. MAN Ty ALEGRIA MD DR: JESÚS/liliane JOB#: [id number] / [id number]
[2016-10-15] MEDS ORDERED: ACET325T9 PO (02:52)
[2016-10-15] MEDS ORDERED: LITH450T16 PO (02:56)
[2016-10-15] MEDS ORDERED: LURA80TA PO (02:58)
[2016-10-15] MEDS ORDERED: MAGN400O7 PO (02:59)
[2016-10-15] MEDS ORDERED: MAG30ORA2 PO (02:59)
[2016-10-15] MEDS ORDERED: METH29OI TP (03:00)
[2016-10-15] MEDS ORDERED: TRAZ50TA15 PO (03:05)
[2016-10-15] MEDS ORDERED: BUSP5TAB PO (03:05)
[2016-10-15 05:49] VITALS: BP 111/76
[2016-10-15] MEDS: CHLORHEXIDINE 0.12% 15 ML MOUTHWASH. MM SCH (08:44)
[2016-10-15] MEDS: APIXABAN 5 MG TABLET. PO SCH (08:44)
[2016-10-15] MEDS: POTASSIUM CHLORIDE 10 MEQ TABLET.ER. PO SCH (08:44)
[2016-10-15] MEDS: LOSARTAN 50 MG TABLET. PO SCH (08:44)
[2016-10-15 08:45] VITALS: BP 111/76
[2016-10-15] MEDS: METOPROLOL SUCC 24HR ER 50 MG TAB.ER.24H. PO SCH (08:45)
[2016-10-15] MEDS: clonazePAM 0.5 MG TABLET PO SCH (08:45)
[2016-10-15] MEDS: LURASIDONE 40 MG TABLET. PO SCH (08:45)
[2016-10-15] MEDS: busPIRone 5 MG TABLET. PO SCH (08:45)
--- NOTE | 2016-10-15 19:46 | PDOC ---
Exam Derrell Demential Exam: Derrell Note: Please also refer to the separate dictated note~for this date of service dictated separately.~Patient seen individually. Discussed the patient with Nursing staff reviewed the chart.~Reviewed interim history and current functioning. Reviewed vital signs,~Labs/ Radiology~and current medications noted below. Continue current treatment with the changes noted in the dictated addendum note Assessment: Vital Signs: Vital Signs Date Time Temp Pulse Resp B/P (MAP) Pulse Ox O2 Delivery O2 Flow Rate FiO2 10/15/16 08:45 98 111/76 10/15/16 05:49 97.7 18 98 10/11/16 15:30 Room Air I&O Intake and Output 10/16/16 07:00 Intake Total 600 ml Balance 600 ml Intake Oral 600 ml Current Medications: Meds: Current Medications Acetaminophen (Tylenol) 650 mg PRN Q6HRS PRN PO PAIN / TEMP Last administered on 10/03/16 12:42; Start 09/29/16 at 23:45; Stop 10/15/16 at 14:11; Status DC Multi-Ingredient Ointment (Analgesic [place]) 1 charles PRN QID PRN TP MUSCLE PAIN; Start 09/29/16 at 23:45; Stop 10/15/16 at 14:11; Status DC Al Hydroxide/Mg Hydroxide (Mylanta Plus Xs) 15 ml PRN AFTMEALHC PRN PO DYSPEPSIA; Start 09/29/16 at 23:45; Stop 10/15/16 at 14:11; Status DC Magnesium Hydroxide (Milk Of Magnesia) 2,400 mg PRN QHS PRN PO CONSTIPATION; Start 09/29/16 at 23:45; Stop 10/15/16 at 14:11; Status DC Apixaban (Eliquis) 5 mg BID PO Last administered on 10/15/16 08:44; Start at 09:00; Stop 10/15/16 at 14:11; Status DC Clonazepam (KlonoPIN) 0.5 mg BID PO Last administered on 10/15/16 08:45; Start 09/30/16 at 09:00; Stop 10/15/16 at 14:11; Status DC Divalproex Sodium (Depakote) 500 mg BID PO Last administered on 10/06/16 08:08 ; Start 09/30/16 at 09:00; Stop 10/06/16 at 18:27; Status DC Chlorhexidine Gluconate (Peridex) 15 ml DAILY MM Last administered on 08:44; Start 09/30/16 at 09:00; Stop 10/15/16 at 14:11; Status DC Folic Acid (Folic Acid) 1 mg HS PO Last administered on 10/14/16 19:22; Start 09/30/16 at 21:00; Stop 10/15/16 at 14:11; Status DC Furosemide (Lasix) 20 mg HS PO Last administered on 10/14/16 19:21; Start at 21:00; Stop 10/15/16 at 14:11; Status DC Losartan Potassium (Cozaar) 50 mg DAILY PO Last administered on 10/15/16 08:44 ; Start 09/30/16 at 09:00; Stop 10/15/16 at 14:11; Status DC Metoprolol Succinate (Toprol Xl) 50 mg BID PO Last administered on 10/15/16 08 :45; Start 09/30/16 at 09:00; Stop 10/15/16 at 14:11; Status DC Polyethylene Glycol (miraLAX) 17 gm PRN DAILY PRN PO CONSTIPATION; Start at 00:00; Stop 10/15/16 at 14:11; Status DC Senna/Docusate Sodium (Senna Plus) 1 tab HS PO Last administered on 10/14/16 19:22; Start 09/30/16 at 21:00; Stop 10/15/16 at 14:11; Status DC Potassium Chloride (Klor-Con) 10 meq DAILY PO Last administered on 10/15/16 08 :44; Start 09/30/16 at 09:00; Stop 10/15/16 at 14:11; Status DC Non-Formulary Medication 1 charles PRN DAILY PRN TP RASH; Start 09/30/16 at 00:00; Status UNV Buspirone HCl (Buspar) 5 mg TID PO Last administered on 10/15/16 08:45; Start 10/01/16 at 21:00; Stop 10/15/16 at 14:11; Status DC Non-Formulary Medication 1 applic PRN DAILY PRN TOP dry face Last administered on 10/03/16 09:24; Start 10/02/16 at 17:30; Stop 10/15/16 at 14:11; Status DC Non-Formulary Medication 1 charles PRN DAILY PRN TOP dry scalp; Start 10/02/16 at 17:30; Stop 10/15/16 at 14:11; Status DC [place] Carbonate 300 mg HS PO Last administered on 10/05/16 20:17; Start at 21:00; Stop 10/06/16 at 18:29; Status DC [place] Carbonate 450 mg HS PO Last administered on 10/14/16 19:22; Start at 21:00; Stop 10/15/16 at 14:11; Status DC Trazodone HCl (Desyrel) 50 mg QHS PO Last administered on 10/14/16 19:21; Start 10/13/16 at 21:00; Stop 10/15/16 at 14:11; Status DC Active Scripts Active Reported Trazodone Hcl 50 Mg Tablet 50 Mg PO QHS Latuda (Lurasidone Hcl) 80 Mg Tablet 80 Mg PO DAILY [place] Carbonate 450 Mg Tablet.er 450 Mg PO QHS Tylenol (Acetaminophen) 325 Mg Tablet 650 Mg PO PRN Q6HRS PRN MDD 4000mg [triamcinolone shampo] 0.1% Charles 1 Charles TOP PRN DAILY PRN Potassium Chloride 10 Meq Tablet.er 10 Meq PO DAILY Metoprolol Succinate ( Xl ) (Metoprolol Succinate) 50 Mg Tab.er.24h 50 Mg PO BID Losartan Potassium 50 Mg Tablet 50 Mg PO DAILY Furosemide 20 Mg Tablet 20 Mg PO DAILY Folic Acid 1 Mg Tablet 1 Mg PO HS Senna-Docusate Sodium Tablet (Sennosides/Docusate Sodium) 1 Each Tablet 1 Tab PO HS Peridex (Chlorhexidine Gluconate) 15 Ml Mouthwash 15 Ml MM DAILY Eliquis (Apixaban) 5 Mg Tablet 5 Mg PO BID Clonazepam 0.5 Mg Tablet 0.5 Mg PO BID Diagnosis: Problems: (1) Bipolar affective, mixed, sev w/ psych (2) Anxiety disorder (3) Dementia, vascular, with delusions (4) Dementia in Alzheimer's disease with delusions (5) Impulse control disorder JUDAH ALEGRIA MD Oct 15, 2016 19:46
--- NOTE | 2016-10-16 00:35 | PN ---
DATE: 10/14/2016 PSYCHIATRIC PROGRESS NOTE This late entry 10/14/2016 covers elements not covered in my initial note of 10/14/2016. SUBJECTIVE: The patient was seen individually evening of 10/14/2016, slept 5-3/4 hours previous evening. Overall, the patient remains confused, withdrawn, less agitated, less paranoid. REVIEW OF SYSTEMS: Ambulation impaired, in a wheelchair. No CV, , pulmonary, eye system symptoms on review. Reliability poor. MENTAL STATUS EXAM: Oriented to himself. Insight, judgment, recent and remote memory, attention, concentration, fund of knowledge poor, consistent with his diagnosis mentioned in my initial note. PLAN: [place] level is 0.7. Maintain lithium at current dosage, check another level 10/15/2016 in the morning. Maintain the rest of her psychotropics. Possible transition to a lower level of care in the next day or two. JUDAH ALEGRIA MD DR: JESÚS/liliane JOB#: [id number] / [id number]
--- NOTE | 2016-10-16 20:17 | DS ---
DATE OF DISCHARGE: 10/15/2016 DISCHARGE SUMMARY AND PSYCHIATRIC PROGRESS NOTE This late entry for 10/15/2016 covers elements not covered in my initial note of 10/15/2016. REASON FOR ADMISSION: Please refer to the admission history for details. Briefly, the patient is a 61-year-old male referred to us from [facility] Emergency Room after he presented there from his intermediate care facility where he has been residing for about 1 year since his second parents . Prior to that, he had been cared in the home by his parents. He has a diagnosis of bipolar disorder and intellectual disability and has had increasing agitation, mood swings, aggression. He presented to the ER with altered mental status, aggressive, irritable with auditory hallucinations, paranoid, threatening staff at the shelter. At the hospital, he was pushing, yelling, not following directions, unmanageable, potentially dangerous, having failed outpatient psychiatric interventions, referred for inpatient psychiatric stabilization. SIGNIFICANT FINDINGS AND CLINICAL COURSE: Following admission, the patient was seen daily individually by myself, followed medically per Dr. Stacy/Dr. Winn. Initially, he was extremely labile, loud, psychotic, paranoid, and difficult to redirect. Adjustments were made in his psychotropics and he seemed to respond to a combination of lithium 450 mg p.o. at bedtime with a level of 0.7, BuSpar 5 mg t.i.d., lurasidone 80 mg daily, Klonopin 0.5 mg b.i.d., trazodone 50 mg at bedtime, may repeat x 1 for insomnia. He had done very well on lithium in the past. That is the reason we restarted that in place of the Depakote, which he had failed. REVIEW OF SYSTEMS: Prior to discharge, 10/15/2016, ambulation impaired, on walker. No CV, , pulmonary, eye, ENT system symptoms on review. Reliability poor. MENTAL STATUS EXAM: Oriented to himself. Insight, judgment, recent and remote memory, attention, concentration, fund of knowledge poor, consistent with his diagnosis. CONDITION AT DISCHARGE: Improved. FINAL DIAGNOSES: Bipolar 1 disorder, mixed with psychotic features, in partial remission; intellectual disability, moderate; anxiety disorder, unspecified; impulse control disorder, unspecified; major neurocognitive disorder, probably Alzheimer's with delusion, behavioral disturbance. Rest diagnosis is unchanged from admission. DISCHARGE MEDICATIONS: Please refer to [facility]. DISCHARGE INSTRUCTIONS: Outpatient psychiatric and medical followup at the senior living. Time for discharge day management greater than 30 minutes. JUDAH ALEGRIA MD DR: JESÚS/liliane JOB#: [id number] / [id number]
== END 2016-10-15 13:30 | DRG 884 ==
LOC: ER 20:47 → GEROPSY 22:26
PROVIDERS: ADMIT Psychiatry & Neurology Psychiatry; ATTEND Psychiatry & Neurology Psychiatry
DX: F01.51 Vascular dementia, unspecified severity, with behavioral disturbance (principal); G30.9 Alzheimer's disease, unspecified; I11.0 Hypertensive heart disease with heart failure; I50.9 Heart failure, unspecified; F02.80 Dementia in other diseases classified elsewhere, unspecified severity, without behavioral disturbance, psychotic disturbance, mood disturbance, and anxiety; F31.64 Bipolar disorder, current episode mixed, severe, with psychotic features; E87.1 Hypo-osmolality and hyponatremia; W18.39XA Other fall on same level, initial encounter; F41.9 Anxiety disorder, unspecified; F42.9 Obsessive-compulsive disorder, unspecified; Z79.899 Other long term (current) drug therapy; F31.77 Bipolar disorder, in partial remission, most recent episode mixed; F63.9 Impulse disorder, unspecified; F71 Moderate intellectual disabilities; S01.01XA Laceration without foreign body of scalp, initial encounter; I48.91 Unspecified atrial fibrillation; L40.9 Psoriasis, unspecified; W05.0XXA Fall from non-moving wheelchair, initial encounter; Z87.828 Personal history of other (healed) physical injury and trauma; Y93.89 Activity, other specified; Y92.89 Other specified places as the place of occurrence of the external cause; Y99.8 Other external cause status; Z95.2 Presence of prosthetic heart valve
CPT/HCPCS: 36415; 70450; 72125; 80053; 80061; 80164; 80178; 82306; 82607; 83036; 83540; 83550; 85025; 85610; 97110; 97116; 97530; 99285-25